=== PATIENT | female | born 1935 | race Caucasian/White ===

== ENCOUNTER 2017-06-29 10:23 | Inpatient (IN) | payer MEDICARE, BC ==
[2017-06-29] MEDS ORDERED: Furosemide 20 MG Tab PO PRN (13:50)
[2017-06-29] MEDS ORDERED: rOPINIRole 0.5 MG Tab PO PRN (13:50)
[2017-06-29] MEDS: ceFAZolin 2 GM in Premix Bag 1 BAG IV SCH ×2 (14:02→21:37)
[2017-06-29] MEDS: traMADol 50 MG Tab PO SCH ×2 (14:49→20:00)
[2017-06-29] MEDS: Acetaminophen 500 MG Tab PO SCH ×2 (14:50→21:36)
[2017-06-29] MEDS: Nystatin Susp 100,000 Unit/ML 5 ML UD Cup PO SCH ×3 (14:50→21:37)
[2017-06-29] MEDS: Calcium Carbonate/Vitamin D3 1250 MG-200 Unit Tab PO SCH (17:20)
--- NOTE | 2017-06-29 17:27 | PCM.HP ---
H&P History of Present Illness - General Date of Service: 06/29/17 Admit Problem/Dx: Admission Diagnosis/Problem Admission Diagnosis/Problem Prosthetic joint infection Source of Information: Patient, Old Records History Limitations: Reports: No Limitations - History of Present Illness Initial Comments - Free Text/Narative: This is an 82-year-old female patient is transferred from [place] after she had an infected contusion of the left lateral knee I an d. She is here for IV antibiotics. 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 She states this summer in April she started to have a wound in the started draining. She did see Dr. Sebastian and then in the middle April had it opened up. She is seen infectious disease they treated it. Then it came back recently and she had an open up by Dr. Sebastian last . She is here for IV antibiotics as stated before. She denies fevers, chills, knee pain. She states it did not get inside the joint. - Related Data Allergies/Adverse Reactions: Allergies Allergy/AdvReac Type Severity Reaction Status Date / Time morphine Allergy Nausea and Verified 06/29/17 13:20 Vomiting Home Medications: Home Meds Acetaminophen [Tylenol Extra Strength] 1,000 mg PO Q8H 06/29/17 [History] Aspirin [Halfprin] 81 mg PO DAILY 06/29/17 [History] Calcium Carbonate [Tums] 500 mg PO QID PRN 06/29/17 [History] Calcium Carbonate/Vitamin D3 [Calcium 500-Vit D3 200 Caplet] 1 tab PO BIDMEALS 06/29/17 [History] Cholecalciferol (Vitamin D3) [Vitamin D3] 1,000 units PO DAILY 06/29/17 [History ] Furosemide 20 mg PO DAILY PRN 06/29/17 [History] Iron,Carbonyl/Ascorbic Acid [Vitron-C Tablet] 1 each PO DAILY 06/29/17 [History] Levothyroxine 125 mcg PO DAILY 06/29/17 [History] Metoprolol Tartrate [Lopressor] 50 mg PO BID 06/29/17 [History] Nystatin [Mycostatin] 500,000 unit PO QID 06/29/17 [History] Omeprazole 20 mg PO DAILY 06/29/17 [History] Polyethylene Glycol 3350 [MiraLAX] 17 gm PO DAILY 06/29/17 [History] Rifampin 600 mg PO DAILY 06/29/17 [History] Sennosides/Docusate Sodium [Senna-S] 1 tab PO BID 06/29/17 [History] amLODIPine [Norvasc] 5 mg PO DAILY 06/29/17 [History] oxyCODONE 5 mg PO Q4H PRN 06/29/17 [History] rOPINIRole [Requip] 0.25 mg PO DAILY PRN 06/29/17 [History] rOPINIRole [Requip] 0.5 mg PO BEDTIME 06/29/17 [History] traMADol [Ultram] 50 mg PO Q6H 06/29/17 [History] Past Medical History HEENT History: Reports: Cataract Respiratory History: Reports: Pneumonia, Recurrent Gastrointestinal History: Reports: GERD [employer]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 (See Below) Other OB/BYN History: D and C x2 Musculoskeletal History: Reports: Osteoporosis Neurological History: Reports: None Psychiatric History: Reports: Anxiety Endocrine/Metabolic History: Reports: Hypothyroidism, Osteoporosis Oncologic (Cancer) History: Reports: Breast - Infectious Disease History Infectious Disease History: Reports: Chicken Pox, Measles, Mumps - Past Surgical History HEENT Surgical History: Reports: Oral Surgery GI Surgical History: Reports: Appendectomy, Cholecystectomy Musculoskeletal Surgical History: Reports: Arthroscopic Knee, Arthroscopic Procedure, Knee Replacement Oncologic Surgical History: Reports: Biopsy of Breast, Mastectomy Social & Family History - Family History Family Medical History: Noncontributory - Tobacco Use Smoking Status *Q: Never Smoker Second Hand Smoke Exposure: No - Caffeine Use Caffeine Use: Reports: Coffee - Recreational Drug Use Recreational Drug Use: No H&P Review of Systems - Review of Systems: Review Of Systems: See Below General: Reports: No Symptoms HEENT: Reports: No Symptoms Pulmonary: Reports: No Symptoms Cardiovascular: Reports: No Symptoms Gastrointestinal: Reports: No Symptoms Genitourinary: Reports: No Symptoms Musculoskeletal: Reports: No Symptoms Skin: Reports: Other (See history of present illness) Psychiatric: Reports: No Symptoms Neurological: Reports: No Symptoms Hematologic/Lymphatic: Reports: No Symptoms Immunologic: Reports: No Symptoms Exam - Exam Exam: See Below - Vital Signs Vital Signs: Last Vital Signs Temp 98.5 F 06/29/17 12:23 Pulse 69 06/29/17 12:23 Resp 20 06/29/17 12:23 BP 155/79 H 06/29/17 12:23 Pulse Ox 96 06/29/17 12:23 Weight: 230 lb - Exam General: Alert, Oriented, Cooperative HEENT: PERRLA, Hearing Intact, Mucosa Moist & [place], Posterior Pharynx Clear, TMs Clear Neck: Supple, Trachea Midline Lungs: Clear to Auscultation, Normal Respiratory Effort Cardiovascular: Regular Rate, Regular Rhythm, Normal S1, Normal S2. No: Systolic Murmur, Diastolic Murmur GI/Abdominal Exam: Normal Bowel Sounds, Soft, Non-Tender, No Distention Back Exam: Normal Inspection Extremities: No Pedal Edema Skin: Other (Incision left lateral knee with amber in place. No erythema or drainage.) Neurological: Normal Speech, Normal Tone Neuro Extensive - Mental Status: Alert, Oriented x3, Normal Mood/Affect, Normal Cognition, Memory Intact Neuro Extensive - Motor, Sensory, Reflexes: Normal Gait, Other (Walks with walker) Psychiatric: Alert, Normal Affect, Normal Mood *Q Meaningful Use (ADM) - VTE *Q VTE Criteria *Q: - Stroke *Q Stroke Criteria *Q: - AMI *Q AMI Criteria *Q: - Problem List (1) Infected prosthetic knee joint SNOMED Code(s): 241685881 ICD Code: T84.59XA - INFECT/INFLM REACTION DUE TO OTH INTERNAL JOINT PROSTH, INIT; Z96.659 - PRESENCE OF UNSPECIFIED ARTIFICIAL KNEE JOINT Status: Acute Current Visit: Yes Problem List Initiated/Reviewed/Updated: Yes Orders Last 24hrs: Active Orders 24 hr Category Date Time Status Patient Status [ADT] Routine ADT 06/29/17 12:15 Active Activity as Tolerated [RC] ,,,21 Care 06/29/17 14:04 Active OT Evaluation and Treatment [CONS] Routine Cons 06/29/17 14:03 Active PT Evaluation and Treatment [CONS] Routine Cons 06/29/17 14:03 Active Regular Diet [DIET] Diet 06/29/17 Dinner Active Acetaminophen [Tylenol Extra Strength] Med 06/29/17 14:00 Active 1,000 mg PO Q8H Aspirin [Halfprin] Med 06/30/17 09:00 Active 81 mg PO DAILY Calcium Carbonate [Tums] Med 06/29/17 13:50 Active 500 mg PO QID PRN Calcium Carbonate/Vitamin D3 [Calcium Carbonate/Vitamin Med 06/29/17 18:00 Active D 1250 MG-200 Unit] 1 tab PO BIDMEALS Cholecalciferol (Vitamin D3) [Vitamin D3] Med 06/30/17 09:00 Active 1,000 units PO DAILY Docusate Sodium/Sennosides [Senna Plus] Med 06/29/17 21:00 Active 1 tab PO BID Ferrous Sulfate Med 06/30/17 09:00 Active 325 mg PO DAILY Furosemide [Lasix] Med 06/29/17 13:50 Active 20 mg PO DAILY PRN Levothyroxine Med 06/30/17 06:00 Active 125 mcg PO 0600 Metoprolol Tartrate [Lopressor] Med 06/29/17 21:00 Active 50 mg PO BID Nystatin [Mycostatin] Med 06/29/17 14:30 Active 5 ml PO QID Pantoprazole [ProTONIX] Med 06/30/17 06:00 Active 40 mg PO 0600 Polyethylene Glycol 3350 [MiraLAX] Med 06/30/17 09:00 Active 17 gm PO DAILY Rifampin Med 06/30/17 09:00 Active 600 mg PO DAILY amLODIPine [Norvasc] Med 06/30/17 09:00 Active 5 mg PO DAILY ceFAZolin [Ancef] 2 gm Med 06/29/17 14:00 Active Premix Bag 1 bag IV Q8H oxyCODONE Med 06/29/17 13:50 Active 5 mg PO Q4H PRN rOPINIRole [Requip] Med 06/29/17 13:50 Active 0.25 mg PO DAILY PRN rOPINIRole [Requip] Med 06/29/17 21:00 Active 0.5 mg PO BEDTIME traMADol [Ultram] Med 06/29/17 14:00 Active 50 mg PO Q6H [place] Hose [Antiembolic Hose] [OM.PC] Routine Oth 06/29/17 14:05 Ordered Code Status [Resuscitation Status] Routine Resus Stat 06/29/17 13:59 Ordered Medication Orders Acetaminophen (Tylenol Extra Strength) 1,000 mg PO Q8H [facility] Last Admin: 06/29/17 14:50 Dose: 1,000 mg Amlodipine Besylate (Norvasc) 5 mg PO DAILY [facility] Aspirin (Halfprin) 81 mg PO DAILY [facility] Calcium Carbonate (Calcium Carbonate/Vitamin D 1250 Mg-200 Unit) 1 tab PO BIDMEALS [facility] Last Admin: 06/29/17 17:20 Dose: 1 tab Calcium Carbonate/Glycine (Tums) 500 mg PO QID PRN PRN Reason: Indigestion Cholecalciferol (Vitamin D3) 1,000 units PO DAILY [facility] Ferrous Sulfate (Ferrous Sulfate) 325 mg PO DAILY [facility] Furosemide (Lasix) 20 mg PO DAILY PRN PRN Reason: SWELLING Cefazolin Sodium/Dextrose 2 gm (/ Premix) 50 mls @ 100 mls/hr IV Q8H [facility] Stop: 08/04/17 22:01 Last Admin: 06/29/17 14:02 Dose: 100 mls/hr Levothyroxine Sodium (Levothyroxine) 125 mcg PO 0600 [facility] Metoprolol Tartrate (Lopressor) 50 mg PO BID [facility] Nystatin (Mycostatin) 5 ml PO QID [facility] Last Admin: 06/29/17 17:20 Dose: 5 ml Admin: 06/29/17 14:50 Dose: 5 ml Oxycodone HCl (Oxycodone) 5 mg PO Q4H PRN PRN Reason: MODERATE/SEVERE PAIN Pantoprazole Sodium (Protonix) 40 mg PO 0600 [facility] Polyethylene Glycol (Miralax) 17 gm PO DAILY [facility] Rifampin (Rifampin) 600 mg PO DAILY [facility] Ropinirole HCl (Requip) 0.25 mg PO DAILY PRN PRN Reason: RESTLESS LEGS Ropinirole HCl (Requip) 0.5 mg PO BEDTIME [facility] Senna/Docusate Sodium (Senna Plus) 1 tab PO BID [facility] Tramadol HCl (Ultram) 50 mg PO Q6H [facility] Last Admin: 06/29/17 14:49 Dose: 50 mg Assessment/Plan Comment:: 1. Admit to swing bed 2. Regular diet. 3. Review PTE prophylaxis 4. Continue orders from [facility]. Rifampin and Ancef. She's here for IV antibiotics.
[2017-06-29] MEDS: rOPINIRole 0.5 MG Tab PO SCH (21:36)
[2017-06-29] MEDS: Metoprolol Tartrate 50 MG Tab PO SCH (21:37)
[2017-06-30] MEDS: Pantoprazole 40 MG Tab.CR PO SCH (07:35)
[2017-06-30] MEDS: ceFAZolin 2 GM in Premix Bag 1 BAG IV SCH ×3 (07:35→21:46)
[2017-06-30] MEDS: Acetaminophen 500 MG Tab PO SCH ×3 (07:35→21:46)
[2017-06-30] MEDS: Levothyroxine 125 MCG Tab PO SCH (07:36)
[2017-06-30] MEDS: Sodium Chloride 0.9% 250 ML IV SCH (07:37)
[2017-06-30] MEDS: traMADol 50 MG Tab PO SCH ×2 (07:40→08:08)
[2017-06-30] MEDS: Sodium Chloride 0.9% 10 ML Syringe FLUSH PRN ×5 (07:40→21:47)
[2017-06-30] MEDS: Calcium Carbonate/Vitamin D3 1250 MG-200 Unit Tab PO SCH ×2 (08:07→17:26)
[2017-06-30] MEDS: Aspirin 81 MG Tab.EC PO SCH (08:08)
[2017-06-30] MEDS: Metoprolol Tartrate 50 MG Tab PO SCH ×2 (08:08→21:45)
[2017-06-30] MEDS: Polyethylene Glycol 3350 Powder 17 GM Packet PO SCH (08:10)
[2017-06-30] MEDS: amLODIPine 5 MG Tab PO SCH (08:10)
[2017-06-30] MEDS: Nystatin Susp 100,000 Unit/ML 5 ML UD Cup PO SCH ×4 (08:10→21:44)
[2017-06-30] MEDS: Cholecalciferol (Vitamin D3) 1,000 Unit Tab PO SCH (08:10)
[2017-06-30] MEDS: Rifampin 300 MG Cap PO SCH (08:10)
[2017-06-30] MEDS: Ferrous Sulfate 325 MG Tab PO SCH (08:30)
[2017-06-30] MEDS: oxyCODONE 5 MG Tab PO PRN (10:55)
[2017-06-30] MEDS: Enoxaparin 30 MG/0.3 ML Syringe SUBCUT SCH (11:41)
[2017-06-30] MEDS: rOPINIRole 0.5 MG Tab PO SCH (21:45)
[2017-07-01] MEDS: Sodium Chloride 0.9% 10 ML Syringe FLUSH PRN ×3 (05:45→21:54)
[2017-07-01] MEDS: ceFAZolin 2 GM in Premix Bag 1 BAG IV SCH ×3 (05:45→21:54)
[2017-07-01] MEDS: Sodium Chloride 0.9% 250 ML IV SCH (05:45)
[2017-07-01] MEDS: Levothyroxine 125 MCG Tab PO SCH (05:47)
[2017-07-01] MEDS: Acetaminophen 500 MG Tab PO SCH ×3 (05:47→21:54)
[2017-07-01] MEDS: Pantoprazole 40 MG Tab.CR PO SCH (05:47)
[2017-07-01] MEDS: Polyethylene Glycol 3350 Powder 17 GM Packet PO SCH (09:06)
[2017-07-01] MEDS: Aspirin 81 MG Tab.EC PO SCH (09:07)
[2017-07-01] MEDS: Calcium Carbonate/Vitamin D3 1250 MG-200 Unit Tab PO SCH ×2 (09:07→17:09)
[2017-07-01] MEDS: Ferrous Sulfate 325 MG Tab PO SCH (09:07)
[2017-07-01] MEDS: Metoprolol Tartrate 50 MG Tab PO SCH ×2 (09:07→21:53)
[2017-07-01] MEDS: Nystatin Susp 100,000 Unit/ML 5 ML UD Cup PO SCH ×4 (09:08→21:53)
[2017-07-01] MEDS: amLODIPine 5 MG Tab PO SCH (09:09)
[2017-07-01] MEDS: Rifampin 300 MG Cap PO SCH (09:09)
[2017-07-01] MEDS: Cholecalciferol (Vitamin D3) 1,000 Unit Tab PO SCH (09:09)
[2017-07-01] MEDS: traMADol 50 MG Tab PO PRN ×2 (09:19→20:09)
[2017-07-01] MEDS: Enoxaparin 30 MG/0.3 ML Syringe SUBCUT SCH (11:32)
[2017-07-01] MEDS: rOPINIRole 0.5 MG Tab PO SCH (21:54)
[2017-07-02] MEDS: oxyCODONE 5 MG Tab PO PRN (03:27)
[2017-07-02] MEDS: Acetaminophen 500 MG Tab PO SCH ×3 (06:01→21:40)
[2017-07-02] MEDS: Pantoprazole 40 MG Tab.CR PO SCH (06:01)
[2017-07-02] MEDS: Levothyroxine 125 MCG Tab PO SCH (06:01)
[2017-07-02] MEDS: ceFAZolin 2 GM in Premix Bag 1 BAG IV SCH ×3 (06:03→21:36)
[2017-07-02] MEDS: Sodium Chloride 0.9% 10 ML Syringe FLUSH PRN ×2 (06:47→21:37)
[2017-07-02] MEDS: traMADol 50 MG Tab PO PRN (08:02)
[2017-07-02] MEDS: Ferrous Sulfate 325 MG Tab PO SCH (08:06)
[2017-07-02] MEDS: Metoprolol Tartrate 50 MG Tab PO SCH ×2 (08:06→20:24)
[2017-07-02] MEDS: Aspirin 81 MG Tab.EC PO SCH (08:06)
[2017-07-02] MEDS: Calcium Carbonate/Vitamin D3 1250 MG-200 Unit Tab PO SCH ×2 (08:06→17:38)
[2017-07-02] MEDS: Polyethylene Glycol 3350 Powder 17 GM Packet PO SCH (08:07)
[2017-07-02] MEDS: amLODIPine 5 MG Tab PO SCH (08:07)
[2017-07-02] MEDS: Rifampin 300 MG Cap PO SCH (08:07)
[2017-07-02] MEDS: Nystatin Susp 100,000 Unit/ML 5 ML UD Cup PO SCH ×4 (08:07→20:29)
[2017-07-02] MEDS: Cholecalciferol (Vitamin D3) 1,000 Unit Tab PO SCH (08:08)
[2017-07-02] MEDS: Enoxaparin 30 MG/0.3 ML Syringe SUBCUT SCH (09:55)
[2017-07-02] MEDS: rOPINIRole 0.5 MG Tab PO SCH (20:30)
[2017-07-02] MEDS: Sodium Chloride 0.9% 250 ML IV SCH (21:38)
[2017-07-03] MEDS: Pantoprazole 40 MG Tab.CR PO SCH (05:54)
[2017-07-03] MEDS: ceFAZolin 2 GM in Premix Bag 1 BAG IV SCH ×3 (05:54→22:08)
[2017-07-03] MEDS: Levothyroxine 125 MCG Tab PO SCH (05:54)
[2017-07-03] MEDS: Sodium Chloride 0.9% 10 ML Syringe FLUSH PRN ×2 (06:00→14:42)
[2017-07-03] MEDS: Acetaminophen 500 MG Tab PO SCH ×3 (07:48→22:08)
[2017-07-03] MEDS: Polyethylene Glycol 3350 Powder 17 GM Packet PO SCH (08:28)
[2017-07-03] MEDS: Calcium Carbonate/Vitamin D3 1250 MG-200 Unit Tab PO SCH ×2 (08:28→17:45)
[2017-07-03] MEDS: Ferrous Sulfate 325 MG Tab PO SCH (08:28)
[2017-07-03] MEDS: Aspirin 81 MG Tab.EC PO SCH (08:28)
[2017-07-03] MEDS: Metoprolol Tartrate 50 MG Tab PO SCH ×2 (08:28→20:51)
[2017-07-03] MEDS: Rifampin 300 MG Cap PO SCH (08:29)
[2017-07-03] MEDS: amLODIPine 5 MG Tab PO SCH (08:29)
[2017-07-03] MEDS: Cholecalciferol (Vitamin D3) 1,000 Unit Tab PO SCH (08:29)
[2017-07-03] MEDS: Nystatin Susp 100,000 Unit/ML 5 ML UD Cup PO SCH ×4 (08:29→20:51)
[2017-07-03] MEDS: Enoxaparin 30 MG/0.3 ML Syringe SUBCUT SCH (12:15)
[2017-07-03] MEDS: rOPINIRole 0.5 MG Tab PO SCH (20:51)
[2017-07-04] MEDS: ceFAZolin 2 GM in Premix Bag 1 BAG IV SCH ×3 (05:54→21:57)
[2017-07-04] MEDS: Acetaminophen 500 MG Tab PO SCH ×3 (06:00→22:09)
[2017-07-04] MEDS: Pantoprazole 40 MG Tab.CR PO SCH (06:00)
[2017-07-04] MEDS: Levothyroxine 125 MCG Tab PO SCH (06:00)
[2017-07-04] MEDS: Calcium Carbonate/Vitamin D3 1250 MG-200 Unit Tab PO SCH ×2 (07:59→16:59)
[2017-07-04] MEDS: Ferrous Sulfate 325 MG Tab PO SCH (09:08)
[2017-07-04] MEDS: Aspirin 81 MG Tab.EC PO SCH (09:08)
[2017-07-04] MEDS: Metoprolol Tartrate 50 MG Tab PO SCH ×2 (09:09→20:05)
[2017-07-04] MEDS: amLODIPine 5 MG Tab PO SCH (09:12)
[2017-07-04] MEDS: Polyethylene Glycol 3350 Powder 17 GM Packet PO SCH (09:12)
[2017-07-04] MEDS: Nystatin Susp 100,000 Unit/ML 5 ML UD Cup PO SCH ×4 (09:12→20:05)
[2017-07-04] MEDS: Rifampin 300 MG Cap PO SCH (09:14)
[2017-07-04] MEDS: Cholecalciferol (Vitamin D3) 1,000 Unit Tab PO SCH (09:14)
[2017-07-04] MEDS: Enoxaparin 30 MG/0.3 ML Syringe SUBCUT SCH (11:30)
[2017-07-04] MEDS: Sodium Chloride 0.9% 10 ML Syringe FLUSH PRN ×2 (15:50→22:45)
[2017-07-04] MEDS: rOPINIRole 0.5 MG Tab PO SCH (20:05)
[2017-07-04] MEDS: Sodium Chloride 0.9% 250 ML IV SCH (21:57)
[2017-07-05] MEDS: ceFAZolin 2 GM in Premix Bag 1 BAG IV SCH ×3 (06:11→22:20)
[2017-07-05] MEDS: Sodium Chloride 0.9% 10 ML Syringe FLUSH PRN ×2 (06:17→13:31)
[2017-07-05] MEDS: Acetaminophen 500 MG Tab PO SCH ×3 (06:17→22:25)
[2017-07-05] MEDS: Levothyroxine 125 MCG Tab PO SCH (06:17)
[2017-07-05] MEDS: Pantoprazole 40 MG Tab.CR PO SCH (06:17)
[2017-07-05] MEDS: Ferrous Sulfate 325 MG Tab PO SCH (08:32)
[2017-07-05] MEDS: Calcium Carbonate/Vitamin D3 1250 MG-200 Unit Tab PO SCH ×2 (08:32→17:12)
[2017-07-05] MEDS: Aspirin 81 MG Tab.EC PO SCH (08:33)
[2017-07-05] MEDS: Metoprolol Tartrate 50 MG Tab PO SCH ×2 (08:33→20:46)
[2017-07-05] MEDS: amLODIPine 5 MG Tab PO SCH (08:34)
[2017-07-05] MEDS: Nystatin Susp 100,000 Unit/ML 5 ML UD Cup PO SCH ×4 (08:34→20:47)
[2017-07-05] MEDS: Polyethylene Glycol 3350 Powder 17 GM Packet PO SCH (08:34)
[2017-07-05] MEDS: Rifampin 300 MG Cap PO SCH (08:35)
[2017-07-05] MEDS: Cholecalciferol (Vitamin D3) 1,000 Unit Tab PO SCH (08:36)
[2017-07-05] MEDS: Enoxaparin 30 MG/0.3 ML Syringe SUBCUT SCH (11:14)
[2017-07-05] MEDS: rOPINIRole 0.5 MG Tab PO SCH (20:46)
[2017-07-06] MEDS: Pantoprazole 40 MG Tab.CR PO SCH (06:16)
[2017-07-06] MEDS: ceFAZolin 2 GM in Premix Bag 1 BAG IV SCH ×3 (06:16→21:38)
[2017-07-06] MEDS: Levothyroxine 125 MCG Tab PO SCH (06:16)
[2017-07-06] MEDS: Acetaminophen 500 MG Tab PO SCH ×3 (06:16→22:26)
[2017-07-06] MEDS: Ferrous Sulfate 325 MG Tab PO SCH (08:49)
[2017-07-06] MEDS: Calcium Carbonate/Vitamin D3 1250 MG-200 Unit Tab PO SCH ×2 (08:49→18:16)
[2017-07-06] MEDS: Aspirin 81 MG Tab.EC PO SCH (08:50)
[2017-07-06] MEDS: Metoprolol Tartrate 50 MG Tab PO SCH ×2 (08:50→20:09)
[2017-07-06] MEDS: Polyethylene Glycol 3350 Powder 17 GM Packet PO SCH (08:51)
[2017-07-06] MEDS: Nystatin Susp 100,000 Unit/ML 5 ML UD Cup PO SCH ×4 (08:51→20:10)
[2017-07-06] MEDS: amLODIPine 5 MG Tab PO SCH (08:52)
[2017-07-06] MEDS: Rifampin 300 MG Cap PO SCH (08:52)
[2017-07-06] MEDS: Cholecalciferol (Vitamin D3) 1,000 Unit Tab PO SCH (08:53)
[2017-07-06] MEDS: Enoxaparin 30 MG/0.3 ML Syringe SUBCUT SCH (11:27)
[2017-07-06] MEDS: Sodium Chloride 0.9% 250 ML IV SCH (14:23)
[2017-07-06] MEDS: Sodium Chloride 0.9% 10 ML Syringe FLUSH PRN ×2 (15:28→22:26)
[2017-07-06] MEDS: rOPINIRole 0.5 MG Tab PO SCH (20:09)
[2017-07-07] MEDS: ceFAZolin 2 GM in Premix Bag 1 BAG IV SCH ×3 (06:31→22:08)
[2017-07-07] MEDS: Levothyroxine 125 MCG Tab PO SCH (06:33)
[2017-07-07] MEDS: Pantoprazole 40 MG Tab.CR PO SCH (06:33)
[2017-07-07] MEDS: Acetaminophen 500 MG Tab PO SCH ×3 (06:34→22:11)
[2017-07-07] MEDS: Sodium Chloride 0.9% 10 ML Syringe FLUSH PRN ×4 (06:35→22:44)
[2017-07-07] MEDS: Ferrous Sulfate 325 MG Tab PO SCH (08:45)
[2017-07-07] MEDS: Aspirin 81 MG Tab.EC PO SCH (08:45)
[2017-07-07] MEDS: Metoprolol Tartrate 50 MG Tab PO SCH ×2 (08:45→20:36)
[2017-07-07] MEDS: Calcium Carbonate/Vitamin D3 1250 MG-200 Unit Tab PO SCH ×2 (08:45→17:27)
[2017-07-07] MEDS: Polyethylene Glycol 3350 Powder 17 GM Packet PO SCH (08:46)
[2017-07-07] MEDS: Nystatin Susp 100,000 Unit/ML 5 ML UD Cup PO SCH ×4 (08:46→20:36)
[2017-07-07] MEDS: amLODIPine 5 MG Tab PO SCH (08:47)
[2017-07-07] MEDS: Rifampin 300 MG Cap PO SCH (08:47)
[2017-07-07] MEDS: Cholecalciferol (Vitamin D3) 1,000 Unit Tab PO SCH (08:48)
[2017-07-07] MEDS: Enoxaparin 30 MG/0.3 ML Syringe SUBCUT SCH (11:05)
[2017-07-07] MEDS: rOPINIRole 0.5 MG Tab PO SCH (20:36)
[2017-07-08] MEDS: ceFAZolin 2 GM in Premix Bag 1 BAG IV SCH ×3 (05:54→21:47)
[2017-07-08] MEDS: Pantoprazole 40 MG Tab.CR PO SCH (06:23)
[2017-07-08] MEDS: Levothyroxine 125 MCG Tab PO SCH (06:23)
[2017-07-08] MEDS: Acetaminophen 500 MG Tab PO SCH ×3 (06:23→21:47)
[2017-07-08] MEDS: Sodium Chloride 0.9% 10 ML Syringe FLUSH PRN ×3 (06:37→22:37)
[2017-07-08] MEDS: Metoprolol Tartrate 50 MG Tab PO SCH ×2 (09:08→20:13)
[2017-07-08] MEDS: Polyethylene Glycol 3350 Powder 17 GM Packet PO SCH (09:08)
[2017-07-08] MEDS: Ferrous Sulfate 325 MG Tab PO SCH (09:08)
[2017-07-08] MEDS: Calcium Carbonate/Vitamin D3 1250 MG-200 Unit Tab PO SCH ×2 (09:08→17:38)
[2017-07-08] MEDS: Aspirin 81 MG Tab.EC PO SCH (09:08)
[2017-07-08] MEDS: amLODIPine 5 MG Tab PO SCH (09:09)
[2017-07-08] MEDS: Nystatin Susp 100,000 Unit/ML 5 ML UD Cup PO SCH ×4 (09:09→20:13)
[2017-07-08] MEDS: Cholecalciferol (Vitamin D3) 1,000 Unit Tab PO SCH (09:10)
[2017-07-08] MEDS: Rifampin 300 MG Cap PO SCH (09:14)
[2017-07-08] MEDS: Enoxaparin 30 MG/0.3 ML Syringe SUBCUT SCH (11:38)
[2017-07-08] MEDS: Sodium Chloride 0.9% 250 ML IV SCH (14:06)
[2017-07-08] MEDS: rOPINIRole 0.5 MG Tab PO SCH (20:13)
[2017-07-09] MEDS: ceFAZolin 2 GM in Premix Bag 1 BAG IV SCH ×3 (05:50→22:37)
[2017-07-09] MEDS: Levothyroxine 125 MCG Tab PO SCH (05:51)
[2017-07-09] MEDS: Pantoprazole 40 MG Tab.CR PO SCH (05:52)
[2017-07-09] MEDS: Acetaminophen 500 MG Tab PO SCH ×4 (05:52→22:38)
[2017-07-09] MEDS: Sodium Chloride 0.9% 10 ML Syringe FLUSH PRN ×3 (06:37→22:45)
[2017-07-09] MEDS: Aspirin 81 MG Tab.EC PO SCH (08:01)
[2017-07-09] MEDS: Ferrous Sulfate 325 MG Tab PO SCH (08:01)
[2017-07-09] MEDS: Calcium Carbonate/Vitamin D3 1250 MG-200 Unit Tab PO SCH ×2 (08:01→18:51)
[2017-07-09] MEDS: Polyethylene Glycol 3350 Powder 17 GM Packet PO SCH (08:02)
[2017-07-09] MEDS: Metoprolol Tartrate 50 MG Tab PO SCH ×2 (08:02→20:15)
[2017-07-09] MEDS: Rifampin 300 MG Cap PO SCH (08:03)
[2017-07-09] MEDS: Nystatin Susp 100,000 Unit/ML 5 ML UD Cup PO SCH ×4 (08:03→20:16)
[2017-07-09] MEDS: amLODIPine 5 MG Tab PO SCH (08:03)
[2017-07-09] MEDS: Cholecalciferol (Vitamin D3) 1,000 Unit Tab PO SCH (08:04)
[2017-07-09] MEDS: Enoxaparin 30 MG/0.3 ML Syringe SUBCUT SCH (10:21)
[2017-07-09] MEDS: rOPINIRole 0.5 MG Tab PO SCH (20:16)
[2017-07-09] MEDS: Sodium Chloride 0.9% 250 ML IV SCH (22:37)
[2017-07-09] MEDS: Calcium Carbonate 500 MG Tab.Chew PO PRN (22:49)
[2017-07-10] MEDS: ceFAZolin 2 GM in Premix Bag 1 BAG IV SCH ×3 (05:39→21:25)
[2017-07-10] MEDS: Pantoprazole 40 MG Tab.CR PO SCH (05:40)
[2017-07-10] MEDS: Acetaminophen 500 MG Tab PO SCH ×3 (05:41→21:25)
[2017-07-10] MEDS: Levothyroxine 125 MCG Tab PO SCH (05:41)
[2017-07-10] MEDS: Sodium Chloride 0.9% 250 ML IV SCH (05:43)
[2017-07-10] MEDS: Sodium Chloride 0.9% 10 ML Syringe FLUSH PRN ×3 (06:24→14:48)
[2017-07-10] MEDS: Calcium Carbonate/Vitamin D3 1250 MG-200 Unit Tab PO SCH ×2 (08:09→17:22)
[2017-07-10] MEDS: Aspirin 81 MG Tab.EC PO SCH (08:10)
[2017-07-10] MEDS: Ferrous Sulfate 325 MG Tab PO SCH (08:10)
[2017-07-10] MEDS: Polyethylene Glycol 3350 Powder 17 GM Packet PO SCH (08:11)
[2017-07-10] MEDS: Metoprolol Tartrate 50 MG Tab PO SCH ×2 (08:11→21:25)
[2017-07-10] MEDS: Nystatin Susp 100,000 Unit/ML 5 ML UD Cup PO SCH ×4 (08:12→21:25)
[2017-07-10] MEDS: amLODIPine 5 MG Tab PO SCH (08:12)
[2017-07-10] MEDS: Rifampin 300 MG Cap PO SCH (08:13)
[2017-07-10] MEDS: Cholecalciferol (Vitamin D3) 1,000 Unit Tab PO SCH (08:14)
[2017-07-10] MEDS: Enoxaparin 30 MG/0.3 ML Syringe SUBCUT SCH (11:13)
[2017-07-10] MEDS: Calcium Carbonate 500 MG Tab.Chew PO PRN ×2 (16:35→21:35)
[2017-07-10] MEDS: rOPINIRole 0.5 MG Tab PO SCH (21:25)
[2017-07-11] MEDS: Pantoprazole 40 MG Tab.CR PO SCH (06:02)
[2017-07-11] MEDS: Levothyroxine 125 MCG Tab PO SCH (06:02)
[2017-07-11] MEDS: Acetaminophen 500 MG Tab PO SCH ×3 (06:02→21:55)
[2017-07-11] MEDS: ceFAZolin 2 GM in Premix Bag 1 BAG IV SCH ×3 (06:02→21:55)
[2017-07-11] MEDS: Metoprolol Tartrate 50 MG Tab PO SCH ×2 (08:26→20:54)
[2017-07-11] MEDS: Calcium Carbonate/Vitamin D3 1250 MG-200 Unit Tab PO SCH ×2 (08:26→17:05)
[2017-07-11] MEDS: Ferrous Sulfate 325 MG Tab PO SCH (08:26)
[2017-07-11] MEDS: Aspirin 81 MG Tab.EC PO SCH (08:26)
[2017-07-11] MEDS: Cholecalciferol (Vitamin D3) 1,000 Unit Tab PO SCH (08:27)
[2017-07-11] MEDS: Rifampin 300 MG Cap PO SCH (08:27)
[2017-07-11] MEDS: amLODIPine 5 MG Tab PO SCH (08:27)
[2017-07-11] MEDS: Polyethylene Glycol 3350 Powder 17 GM Packet PO SCH (09:00)
[2017-07-11] MEDS: Nystatin Susp 100,000 Unit/ML 5 ML UD Cup PO SCH ×4 (09:00→20:57)
[2017-07-11] MEDS: Enoxaparin 30 MG/0.3 ML Syringe SUBCUT SCH (11:10)
[2017-07-11] MEDS: Sodium Chloride 0.9% 250 ML IV SCH (13:45)
[2017-07-11] MEDS: Calcium Carbonate 500 MG Tab.Chew PO PRN ×2 (16:45→21:02)
[2017-07-11] MEDS: rOPINIRole 0.5 MG Tab PO SCH (20:54)
[2017-07-11] MEDS: Sodium Chloride 0.9% 10 ML Syringe FLUSH PRN (22:35)
[2017-07-12] MEDS: ceFAZolin 2 GM in Premix Bag 1 BAG IV SCH ×3 (05:58→21:00)
[2017-07-12] MEDS: Levothyroxine 125 MCG Tab PO SCH (05:59)
[2017-07-12] MEDS: Pantoprazole 40 MG Tab.CR PO SCH (05:59)
[2017-07-12] MEDS: Acetaminophen 500 MG Tab PO SCH ×3 (06:04→21:00)
[2017-07-12] MEDS: Metoprolol Tartrate 50 MG Tab PO SCH ×2 (08:35→20:31)
[2017-07-12] MEDS: Aspirin 81 MG Tab.EC PO SCH (08:35)
[2017-07-12] MEDS: Calcium Carbonate/Vitamin D3 1250 MG-200 Unit Tab PO SCH ×2 (08:35→18:16)
[2017-07-12] MEDS: Ferrous Sulfate 325 MG Tab PO SCH (08:35)
[2017-07-12] MEDS: Polyethylene Glycol 3350 Powder 17 GM Packet PO SCH (08:36)
[2017-07-12] MEDS: Nystatin Susp 100,000 Unit/ML 5 ML UD Cup PO SCH (08:36)
[2017-07-12] MEDS: Rifampin 300 MG Cap PO SCH (08:37)
[2017-07-12] MEDS: amLODIPine 5 MG Tab PO SCH (08:37)
[2017-07-12] MEDS: Cholecalciferol (Vitamin D3) 1,000 Unit Tab PO SCH (08:38)
[2017-07-12] MEDS ORDERED: Polyethylene Glycol 3350 Powder 17 GM Packet PO PRN (08:51)
[2017-07-12] MEDS: Enoxaparin 30 MG/0.3 ML Syringe SUBCUT SCH (12:07)
[2017-07-12] MEDS: Sodium Chloride 0.9% 10 ML Syringe FLUSH PRN ×3 (14:55→21:00)
[2017-07-12] MEDS: Sodium Chloride 0.9% 250 ML IV SCH (14:55)
[2017-07-12] MEDS: rOPINIRole 0.5 MG Tab PO SCH (20:32)
[2017-07-12] MEDS: Calcium Carbonate 500 MG Tab.Chew PO PRN (20:56)
[2017-07-13] MEDS: ceFAZolin 2 GM in Premix Bag 1 BAG IV SCH ×3 (06:11→22:18)
[2017-07-13] MEDS: OMEPRAZOLE 20 MG PO SCH (06:14)
[2017-07-13] MEDS: Acetaminophen 500 MG Tab PO SCH ×3 (06:15→22:49)
[2017-07-13] MEDS: Levothyroxine 125 MCG Tab PO SCH (06:15)
[2017-07-13] MEDS: Sodium Chloride 0.9% 10 ML Syringe FLUSH PRN ×4 (06:52→22:52)
[2017-07-13] MEDS: Calcium Carbonate/Vitamin D3 1250 MG-200 Unit Tab PO SCH ×2 (08:33→17:37)
[2017-07-13] MEDS: Ferrous Sulfate 325 MG Tab PO SCH (08:33)
[2017-07-13] MEDS: Aspirin 81 MG Tab.EC PO SCH (08:34)
[2017-07-13] MEDS: Metoprolol Tartrate 50 MG Tab PO SCH ×2 (08:38→21:36)
[2017-07-13] MEDS: Rifampin 300 MG Cap PO SCH (08:39)
[2017-07-13] MEDS: amLODIPine 5 MG Tab PO SCH (08:39)
[2017-07-13] MEDS: Cholecalciferol (Vitamin D3) 1,000 Unit Tab PO SCH (08:41)
[2017-07-13] MEDS: Enoxaparin 30 MG/0.3 ML Syringe SUBCUT SCH (11:11)
[2017-07-13] MEDS: Sodium Chloride 0.9% 250 ML IV SCH (15:20)
[2017-07-13] MEDS: Saccharomyces Boulardii (Probiotic) 250 MG Cap PO SCH ×2 (17:39→22:15)
[2017-07-13] MEDS: rOPINIRole 0.5 MG Tab PO SCH (21:39)
[2017-07-14] MEDS: Levothyroxine 125 MCG Tab PO SCH (06:24)
[2017-07-14] MEDS: Acetaminophen 500 MG Tab PO SCH ×3 (06:25→21:30)
[2017-07-14] MEDS: OMEPRAZOLE 20 MG PO SCH (06:25)
[2017-07-14] MEDS: ceFAZolin 2 GM in Premix Bag 1 BAG IV SCH ×3 (06:26→21:30)
[2017-07-14] MEDS: Sodium Chloride 0.9% 10 ML Syringe FLUSH PRN ×3 (06:30→22:20)
--- NOTE | 2017-07-14 08:21 | PCM.PN ---
- General Info Date of Service: 07/14/17 Admission Dx/Problem (Free Text): Patient doing well. She saw the infectious disease doctor yesterday and [facility]. He put on probiotics and order some labs that we put into the orders yesterday. She states she still has amber in her left knee. There is no erythema, pain or drainage. She denies fevers or chills. - Patient Data Vitals - Most Recent: Last Vital Signs Temp 98 F 07/14/17 08:00 Pulse 98 07/14/17 08:00 Resp 18 07/14/17 08:00 BP 145/88 H 07/14/17 08:00 Pulse Ox 95 07/14/17 08:00 Weight - Most Recent: 226 lb I&O - Last 24 Hours: Intake & Output 07/13/17 07/14/17 07/14/17 22:59 06:59 14:59 Intake Total 130 85 Balance 130 85 Med Orders - Current: Current Medications Acetaminophen (Tylenol Extra Strength) 1,000 mg PO Q8H REPLACED BY [facility] Last Admin: 07/14/17 06:25 Dose: 1,000 mg Amlodipine Besylate (Norvasc) 5 mg PO DAILY REPLACED BY [facility] Last Admin: 07/13/17 08:39 Dose: 5 mg Aspirin (Halfprin) 81 mg PO DAILY REPLACED BY [facility] Last Admin: 07/13/17 08:34 Dose: 81 mg Calcium Carbonate (Calcium Carbonate/Vitamin D 1250 Mg-200 Unit) 1 tab PO BIDMEALS REPLACED BY [facility] Last Admin: 07/13/17 17:37 Dose: 1 tab Calcium Carbonate/Glycine (Tums) 500 mg PO QID PRN PRN Reason: Indigestion Last Admin: 07/12/17 20:56 Dose: 500 mg Cholecalciferol (Vitamin D3) 1,000 units PO DAILY REPLACED BY [facility] Last Admin: 07/13/17 08:41 Dose: 1,000 units Enoxaparin Sodium (Lovenox) 30 mg SUBCUT Q24H REPLACED BY [facility] Last Admin: 07/13/17 11:11 Dose: 30 mg Ferrous Sulfate (Ferrous Sulfate) 325 mg PO DAILY REPLACED BY [facility] Last Admin: 07/13/17 08:33 Dose: 325 mg Furosemide (Lasix) 20 mg PO DAILY PRN PRN Reason: SWELLING Cefazolin Sodium/Dextrose 2 gm (/ Premix) 50 mls @ 100 mls/hr IV Q8H REPLACED BY [facility] Stop: 08/04/17 22:01 Last Admin: 07/14/17 06:26 Dose: 100 mls/hr Sodium Chloride (Normal Saline) 250 mls @ 125 mls/hr IV ASDIRECTED REPLACED BY [facility] Last Admin: 07/13/17 15:20 Dose: 125 mls/hr Levothyroxine Sodium (Levothyroxine) 125 mcg PO 0600 REPLACED BY [facility] Last Admin: 07/14/17 06:24 Dose: 125 mcg Metoprolol Tartrate (Lopressor) 50 mg PO BID REPLACED BY [facility] Last Admin: 07/13/17 21:36 Dose: 50 mg Non-Formulary Medication ( Omeprazole 20mg) * Ptom 1 each PO DAILY@0600 REPLACED BY [facility] Last Admin: 07/14/17 06:25 Dose: 1 each Oxycodone HCl (Oxycodone) 5 mg PO Q4H PRN PRN Reason: MODERATE/SEVERE PAIN Last Admin: 07/02/17 03:27 Dose: 5 mg Polyethylene Glycol (Miralax) 17 gm PO DAILY PRN PRN Reason: Constipation Rifampin (Rifampin) 600 mg PO DAILY REPLACED BY [facility] Stop: 08/09/17 12:00 Last Admin: 07/13/17 08:39 Dose: 600 mg Ropinirole HCl (Requip) 0.25 mg PO DAILY PRN PRN Reason: RESTLESS LEGS Ropinirole HCl (Requip) 0.5 mg PO BEDTIME REPLACED BY [facility] Last Admin: 07/13/17 21:39 Dose: 0.5 mg Saccharomyces Boulardii (Florastor) 250 mg PO TID REPLACED BY [facility] Last Admin: 07/13/17 22:15 Dose: 250 mg Senna/Docusate Sodium (Senna Plus) 1 tab PO DAILY PRN PRN Reason: Constipation Sodium Chloride (Saline Flush) 10 ml FLUSH ASDIRECTED PRN PRN Reason: IV Use Last Admin: 07/14/17 06:30 Dose: 10 ml Tramadol HCl (Ultram) 50 mg PO Q6H PRN PRN Reason: Pain Last Admin: 07/02/17 08:02 Dose: 50 mg Discontinued Medications Nystatin (Mycostatin) 5 ml PO QID REPLACED BY [facility] Last Admin: 07/12/17 08:36 Dose: Not Given Pantoprazole Sodium (Protonix) 40 mg PO 0600 REPLACED BY [facility] Last Admin: 07/12/17 05:59 Dose: 40 mg Polyethylene Glycol (Miralax) 17 gm PO DAILY REPLACED BY [facility] Last Admin: 07/12/17 08:36 Dose: Not Given Senna/Docusate Sodium (Senna Plus) 1 tab PO BID REPLACED BY [facility] Last Admin: 07/12/17 08:37 Dose: Not Given Tramadol HCl (Ultram) 50 mg PO Q6H REPLACED BY [facility] Last Admin: 06/30/17 08:08 Dose: Not Given - Exam General: Alert, Oriented, Cooperative Skin: Other (Left knee wound is healed nicely. Amber still in place. No erythema or drainage.) - Problem List & Annotations (1) Infected prosthetic knee joint SNOMED Code(s): 878858483 Code(s): T84.59XA - INFECT/INFLM REACTION DUE TO OTH INTERNAL JOINT PROSTH, INIT; Z96.659 - PRESENCE OF UNSPECIFIED ARTIFICIAL KNEE JOINT Status: Acute Current Visit: Yes - Problem List Review Problem List Initiated/Reviewed/Updated: Yes - Plan Plan:: 1. Continue current care 2. Continue antibiotics per infectious disease orders.
[2017-07-14] MEDS: Ferrous Sulfate 325 MG Tab PO SCH (08:52)
[2017-07-14] MEDS: Aspirin 81 MG Tab.EC PO SCH (08:55)
[2017-07-14] MEDS: Metoprolol Tartrate 50 MG Tab PO SCH ×2 (08:56→20:37)
[2017-07-14] MEDS: amLODIPine 5 MG Tab PO SCH (08:56)
[2017-07-14] MEDS: Rifampin 300 MG Cap PO SCH (08:58)
[2017-07-14] MEDS: Calcium Carbonate/Vitamin D3 1250 MG-200 Unit Tab PO SCH ×2 (08:59→17:15)
[2017-07-14] MEDS: Cholecalciferol (Vitamin D3) 1,000 Unit Tab PO SCH (08:59)
[2017-07-14] MEDS: Saccharomyces Boulardii (Probiotic) 250 MG Cap PO SCH ×3 (10:20→20:36)
[2017-07-14] MEDS: Enoxaparin 30 MG/0.3 ML Syringe SUBCUT SCH (11:05)
[2017-07-14] MEDS: rOPINIRole 0.5 MG Tab PO SCH (20:37)
[2017-07-14] MEDS: Sodium Chloride 0.9% 250 ML IV SCH (21:30)
[2017-07-15] MEDS: Levothyroxine 125 MCG Tab PO SCH (05:58)
[2017-07-15] MEDS: Acetaminophen 500 MG Tab PO SCH ×3 (05:58→21:53)
[2017-07-15] MEDS: ceFAZolin 2 GM in Premix Bag 1 BAG IV SCH ×3 (05:58→21:52)
[2017-07-15] MEDS: OMEPRAZOLE 20 MG PO SCH (05:58)
[2017-07-15] MEDS: Sodium Chloride 0.9% 10 ML Syringe FLUSH PRN ×2 (06:45→22:41)
[2017-07-15] MEDS: Ferrous Sulfate 325 MG Tab PO SCH (08:48)
[2017-07-15] MEDS: Calcium Carbonate/Vitamin D3 1250 MG-200 Unit Tab PO SCH ×2 (08:48→18:38)
[2017-07-15] MEDS: Saccharomyces Boulardii (Probiotic) 250 MG Cap PO SCH ×3 (08:48→20:42)
[2017-07-15] MEDS: Aspirin 81 MG Tab.EC PO SCH (08:48)
[2017-07-15] MEDS: Metoprolol Tartrate 50 MG Tab PO SCH ×2 (08:49→20:42)
[2017-07-15] MEDS: amLODIPine 5 MG Tab PO SCH (08:49)
[2017-07-15] MEDS: Rifampin 300 MG Cap PO SCH (08:50)
[2017-07-15] MEDS: Cholecalciferol (Vitamin D3) 1,000 Unit Tab PO SCH (08:50)
[2017-07-15] MEDS: Enoxaparin 30 MG/0.3 ML Syringe SUBCUT SCH (11:13)
[2017-07-15] MEDS: rOPINIRole 0.5 MG Tab PO SCH (20:42)
[2017-07-15] MEDS: Sodium Chloride 0.9% 250 ML IV SCH (21:51)
[2017-07-15] MEDS: Calcium Carbonate 500 MG Tab.Chew PO PRN (22:14)
[2017-07-16] MEDS: OMEPRAZOLE 20 MG PO SCH (05:47)
[2017-07-16] MEDS: Levothyroxine 125 MCG Tab PO SCH (05:48)
[2017-07-16] MEDS: ceFAZolin 2 GM in Premix Bag 1 BAG IV SCH ×3 (05:48→21:53)
[2017-07-16] MEDS: Acetaminophen 500 MG Tab PO SCH ×3 (06:42→21:53)
[2017-07-16] MEDS: Sodium Chloride 0.9% 10 ML Syringe FLUSH PRN (06:43)
[2017-07-16] MEDS: amLODIPine 5 MG Tab PO SCH (08:57)
[2017-07-16] MEDS: Metoprolol Tartrate 50 MG Tab PO SCH ×2 (08:58→21:52)
[2017-07-16] MEDS: Calcium Carbonate/Vitamin D3 1250 MG-200 Unit Tab PO SCH ×2 (08:58→19:11)
[2017-07-16] MEDS: Saccharomyces Boulardii (Probiotic) 250 MG Cap PO SCH ×3 (08:58→21:52)
[2017-07-16] MEDS: Cholecalciferol (Vitamin D3) 1,000 Unit Tab PO SCH (08:58)
[2017-07-16] MEDS: Ferrous Sulfate 325 MG Tab PO SCH (08:58)
[2017-07-16] MEDS: Aspirin 81 MG Tab.EC PO SCH (08:59)
[2017-07-16] MEDS: Rifampin 300 MG Cap PO SCH (08:59)
[2017-07-16] MEDS: Enoxaparin 30 MG/0.3 ML Syringe SUBCUT SCH (11:41)
[2017-07-16] MEDS: Calcium Carbonate 500 MG Tab.Chew PO PRN ×2 (13:43→19:13)
[2017-07-16] MEDS ORDERED: Calcium Carbonate 500 MG Tab.Chew PO ONE (14:24)
[2017-07-16] MEDS: rOPINIRole 0.5 MG Tab PO SCH (21:53)
[2017-07-17] MEDS: ceFAZolin 2 GM in Premix Bag 1 BAG IV SCH ×3 (05:45→21:12)
[2017-07-17] MEDS: Levothyroxine 125 MCG Tab PO SCH (05:52)
[2017-07-17] MEDS: Acetaminophen 500 MG Tab PO SCH ×4 (05:53→21:10)
[2017-07-17] MEDS: OMEPRAZOLE 20 MG PO SCH ×2 (05:53→17:41)
[2017-07-17] MEDS: Rifampin 300 MG Cap PO SCH (09:23)
[2017-07-17] MEDS: amLODIPine 5 MG Tab PO SCH (09:23)
[2017-07-17] MEDS: Calcium Carbonate/Vitamin D3 1250 MG-200 Unit Tab PO SCH ×2 (09:24→17:37)
[2017-07-17] MEDS: Cholecalciferol (Vitamin D3) 1,000 Unit Tab PO SCH (09:24)
[2017-07-17] MEDS: Metoprolol Tartrate 50 MG Tab PO SCH ×2 (09:24→21:14)
[2017-07-17] MEDS: Saccharomyces Boulardii (Probiotic) 250 MG Cap PO SCH ×3 (09:24→21:07)
[2017-07-17] MEDS: Ferrous Sulfate 325 MG Tab PO SCH (09:24)
[2017-07-17] MEDS: Aspirin 81 MG Tab.EC PO SCH (09:24)
[2017-07-17] MEDS: Enoxaparin 30 MG/0.3 ML Syringe SUBCUT SCH (11:15)
[2017-07-17] MEDS: Sodium Chloride 0.9% 10 ML Syringe FLUSH PRN ×3 (14:02→21:15)
[2017-07-17] MEDS: Sodium Chloride 0.9% 250 ML IV SCH (14:05)
[2017-07-17] MEDS: Ondansetron 4 MG Tab.DIS PO PRN (14:58)
[2017-07-17] MEDS ORDERED: Non-Formulary Medication 1 Each PO SCH (17:00)
[2017-07-17] MEDS: Calcium Carbonate 500 MG Tab.Chew PO PRN (20:32)
[2017-07-17] MEDS: rOPINIRole 0.5 MG Tab PO SCH (21:08)
[2017-07-18] MEDS: ceFAZolin 2 GM in Premix Bag 1 BAG IV SCH ×3 (06:45→21:02)
[2017-07-18] MEDS: Sodium Chloride 0.9% 10 ML Syringe FLUSH PRN ×4 (06:47→20:29)
[2017-07-18] MEDS: Levothyroxine 125 MCG Tab PO SCH (06:48)
[2017-07-18] MEDS: Acetaminophen 500 MG Tab PO SCH (06:48)
[2017-07-18] MEDS: OMEPRAZOLE 20 MG PO SCH ×2 (06:50→17:13)
[2017-07-18] MEDS ORDERED: Acetaminophen 500 MG Tab PO PRN (08:00)
[2017-07-18] MEDS: Ferrous Sulfate 325 MG Tab PO SCH (08:22)
[2017-07-18] MEDS: Calcium Carbonate/Vitamin D3 1250 MG-200 Unit Tab PO SCH ×2 (08:22→17:12)
[2017-07-18] MEDS: Saccharomyces Boulardii (Probiotic) 250 MG Cap PO SCH ×3 (08:22→20:25)
[2017-07-18] MEDS: Aspirin 81 MG Tab.EC PO SCH (08:22)
[2017-07-18] MEDS: amLODIPine 5 MG Tab PO SCH (08:23)
[2017-07-18] MEDS: Cholecalciferol (Vitamin D3) 1,000 Unit Tab PO SCH (08:23)
[2017-07-18] MEDS: Rifampin 300 MG Cap PO SCH (08:23)
[2017-07-18] MEDS: Metoprolol Tartrate 50 MG Tab PO SCH ×2 (08:28→20:27)
[2017-07-18] MEDS: Calcium Carbonate 500 MG Tab.Chew PO PRN (11:04)
[2017-07-18] MEDS: Enoxaparin 30 MG/0.3 ML Syringe SUBCUT SCH (11:05)
[2017-07-18] MEDS: Sodium Chloride 0.9% 250 ML IV SCH (13:30)
[2017-07-18] MEDS: Ondansetron 4 MG Tab.DIS PO PRN ×2 (14:24→20:33)
[2017-07-18] MEDS: rOPINIRole 0.5 MG Tab PO SCH (20:26)
[2017-07-19] MEDS: ceFAZolin 2 GM in Premix Bag 1 BAG IV SCH ×3 (06:25→22:47)
[2017-07-19] MEDS: OMEPRAZOLE 20 MG PO SCH ×2 (06:27→17:46)
[2017-07-19] MEDS: Levothyroxine 125 MCG Tab PO SCH (06:28)
[2017-07-19] MEDS: Sodium Chloride 0.9% 10 ML Syringe FLUSH PRN ×2 (06:29→23:30)
[2017-07-19] MEDS: Ondansetron 4 MG Tab.DIS PO PRN (06:34)
--- NOTE | 2017-07-19 09:28 | PCM.PN ---
- General Info Date of Service: 07/19/17 Subjective Update: Patient complains of nausea, and at least one episode of emesis emesis. The symptoms have been going on for the last 3 weeks since admission. She's tried Tums, omeprazole and Zofran with no improvement. She has noted bright red blood in the vomitus in some occasions. She also suffers from dyspepsia and heartburn. She denies melena stools. This morning she complains of feeling somewhat dizzy at times. Functional Status: Reports: Pain Controlled, Tolerating Diet - Review of Systems General: Reports: No Symptoms HEENT: Reports: No Symptoms Pulmonary: Reports: No Symptoms Gastrointestinal: Reports: Decreased Appetite, Nausea, Vomiting. Denies: Melena Genitourinary: Reports: No Symptoms - Patient Data Vitals - Most Recent: Last Vital Signs Temp 98 F 07/19/17 02:21 Pulse 87 07/19/17 02:21 Resp 16 07/19/17 02:21 BP 131/70 07/19/17 02:21 Pulse Ox 95 07/19/17 02:21 Weight - Most Recent: 102.512 kg I&O - Last 24 Hours: Intake & Output 07/18/17 07/19/17 07/19/17 22:59 06:59 14:59 Intake Total 85 Balance 85 Lab Results Last 24 Hours: Laboratory Results - last 24 hr 07/19/17 07/19/17 Range/Units 05:50 05:50 WBC 3.9 L (4.5-12.0) X10-3/uL RBC 2.80 L (3.23-5.20) x10(6)uL Hgb 8.4 L (11.5-15.5) g/dL Hct 25.9 L (30.0-51.3) % MCV 92.4 (80-96) fL MCH 30.0 (27.7-33.6) pg MCHC 32.5 (32.2-35.4) g/dL RDW 14.2 (11.5-15.5) % Plt Count 232 (125-369) X10(3)uL MPV 7.5 (7.4-10.4) fL Neut % (Auto) 56.4 (46-82) % Lymph % (Auto) 31.0 (13-37) % [place] % (Auto) 8.8 (4-12) % Eos % (Auto) 3 (1.0-5.0) % Baso % (Auto) 1 (0-2) % Neut # (Auto) 2.3 (1.6-8.3) # Lymph # (Auto) 1.2 (0.6-5.0) # [place] # (Auto) 0.3 (0.0-1.3) # Eos # (Auto) 0.1 (0.0-0.8) # Baso # (Auto) 0.0 (0.0-0.2) # ESR 31 H (0-20) mm/hr Sodium 138 (135-145) mmol/L Potassium 4.0 (3.5-5.3) mmol/L Chloride 104 (100-110) mmol/L Carbon Dioxide 27 (23-29) mmol/L BUN 22 (8-23) mg/dL Creatinine 0.7 (0.6-1.3) mg/dL Est Cr Clr Drug Dosing 52.14 mL/min Estimated GFR (MDRD) > 60 (>60) BUN/Creatinine Ratio 31.4 H (9-20) Glucose 93 (80-116) mg/dL Calcium 8.4 L (8.6-10.2) mg/dL Total Bilirubin 0.2 (0.1-1.3) mg/dL AST 12 D (5-27) IU/L ALT 3 L (14-26) IU/L Alkaline Phosphatase 55 L (56-112) IU/L C-Reactive Protein < 0.5 (0.0-1.0) mg/dL Total Protein 5.7 L (6.0-8.0) g/dL Albumin 3.0 L (3.2-4.6) g/dL Globulin 2.7 g/dL Albumin/Globulin Ratio 1.1 Jeffrey Results Last 24 Hours: Microbiology 07/18/17 22:55 Gastric Occult Blood - Final Gastric Fluid Med Orders - Current: Current Medications Acetaminophen (Tylenol Extra Strength) 1,000 mg PO Q8H PRN PRN Reason: Pain Amlodipine Besylate (Norvasc) 5 mg PO DAILY [facility] Last Admin: 07/18/17 08:23 Dose: 5 mg Aspirin (Halfprin) 81 mg PO DAILY [facility] Last Admin: 07/18/17 08:22 Dose: 81 mg Calcium Carbonate (Calcium Carbonate/Vitamin D 1250 Mg-200 Unit) 1 tab PO BIDMEALS [facility] Last Admin: 07/18/17 17:12 Dose: 1 tab Calcium Carbonate/Glycine (Tums) 1,000 mg PO QID PRN PRN Reason: Indigestion Last Admin: 07/18/17 11:04 Dose: 1,000 mg Cholecalciferol (Vitamin D3) 1,000 units PO DAILY [facility] Last Admin: 07/18/17 08:23 Dose: 1,000 units Enoxaparin Sodium (Lovenox) 30 mg SUBCUT Q24H [facility] Last Admin: 07/18/17 11:05 Dose: 30 mg Ferrous Sulfate (Ferrous Sulfate) 325 mg PO DAILY [facility] Last Admin: 07/18/17 08:22 Dose: 325 mg Fexofenadine HCl (Kathryn) 60 mg PO BID PRN PRN Reason: Other Stop: 07/21/17 21:00 Last Admin: 07/18/17 09:57 Dose: 60 mg Furosemide (Lasix) 20 mg PO DAILY PRN PRN Reason: SWELLING Cefazolin Sodium/Dextrose 2 gm (/ Premix) 50 mls @ 100 mls/hr IV Q8H [facility] Stop: 08/04/17 22:01 Last Admin: 07/19/17 06:25 Dose: 100 mls/hr Sodium Chloride (Normal Saline) 250 mls @ 125 mls/hr IV ASDIRECTED [facility] Last Admin: 07/18/17 13:30 Dose: 125 mls/hr Levothyroxine Sodium (Levothyroxine) 125 mcg PO 0600 [facility] Last Admin: 07/19/17 06:28 Dose: 125 mcg Metoprolol Tartrate (Lopressor) 50 mg PO BID [facility] Last Admin: 07/18/17 20:27 Dose: 50 mg Non-Formulary Medication ( Omeprazole 20mg) * Ptom 1 each PO BID@0600,1800 [facility] Last Admin: 07/19/17 06:27 Dose: 1 each Ondansetron HCl (Zofran Odt) 4 mg PO Q6H PRN PRN Reason: Nausea/Vomiting Last Admin: 07/19/17 06:34 Dose: 4 mg Oxycodone HCl (Oxycodone) 5 mg PO Q4H PRN PRN Reason: MODERATE/SEVERE PAIN Last Admin: 07/02/17 03:27 Dose: 5 mg Polyethylene Glycol (Miralax) 17 gm PO DAILY PRN PRN Reason: Constipation Rifampin (Rifampin) 600 mg PO DAILY [facility] Stop: 08/09/17 12:00 Last Admin: 07/18/17 08:23 Dose: 600 mg Ropinirole HCl (Requip) 0.25 mg PO DAILY PRN PRN Reason: RESTLESS LEGS Ropinirole HCl (Requip) 0.5 mg PO BEDTIME [facility] Last Admin: 07/18/17 20:26 Dose: 0.5 mg Saccharomyces Boulardii (Florastor) 250 mg PO TID [facility] Last Admin: 07/18/17 20:25 Dose: 250 mg Senna/Docusate Sodium (Senna Plus) 1 tab PO DAILY PRN PRN Reason: Constipation Sodium Chloride (Saline Flush) 10 ml FLUSH ASDIRECTED PRN PRN Reason: IV Use Last Admin: 07/19/17 06:29 Dose: 10 ml Tramadol HCl (Ultram) 50 mg PO Q6H PRN PRN Reason: Pain Last Admin: 07/02/17 08:02 Dose: 50 mg Discontinued Medications Acetaminophen (Tylenol Extra Strength) 1,000 mg PO Q8H [facility] Last Admin: 07/18/17 06:48 Dose: Not Given Calcium Carbonate/Glycine (Tums) 500 mg PO QID PRN PRN Reason: Indigestion Last Admin: 07/16/17 19:13 Dose: 500 mg Calcium Carbonate/Glycine (Tums) 500 mg PO ONETIME ONE Stop: 07/16/17 14:25 Last Admin: 07/16/17 14:31 Dose: 500 mg Non-Formulary Medication ( Omeprazole 20mg) * Ptom 1 each PO DAILY@0600 [facility] Last Admin: 07/17/17 05:53 Dose: 1 each Non-Formulary Medication (Nf Drug) 1 each PO Q12H [facility] Last Admin: 07/17/17 17:40 Dose: Not Given Nystatin (Mycostatin) 5 ml PO QID [facility] Last Admin: 07/12/17 08:36 Dose: Not Given Pantoprazole Sodium (Protonix) 40 mg PO 0600 [facility] Last Admin: 07/12/17 05:59 Dose: 40 mg Polyethylene Glycol (Miralax) 17 gm PO DAILY [facility] Last Admin: 07/12/17 08:36 Dose: Not Given Senna/Docusate Sodium (Senna Plus) 1 tab PO BID [facility] Last Admin: 07/12/17 08:37 Dose: Not Given Tramadol HCl (Ultram) 50 mg PO Q6H [facility] Last Admin: 06/30/17 08:08 Dose: Not Given - Exam General: Alert, Oriented HEENT: Pupils Equal, Pupils Reactive, EOMI, Mucous Membr. Moist/[place] Neck: Supple Lungs: Clear to Auscultation, Normal Respiratory Effort - Problem List & Annotations (1) GERD (gastroesophageal reflux disease) SNOMED Code(s): 301489566 Code(s): K21.9 - GASTRO-ESOPHAGEAL REFLUX DISEASE WITHOUT ESOPHAGITIS Status: Acute Current Visit: Yes Qualifiers: Esophagitis presence: with esophagitis Qualified Code(s): K21.0 - Gastro- esophageal reflux disease with esophagitis (2) Hematemesis SNOMED Code(s): 3081722 Code(s): K92.0 - HEMATEMESIS Status: Acute Current Visit: Yes Qualifiers: Nausea presence: with nausea Qualified Code(s): K92.0 - Hematemesis (3) Infected prosthetic knee joint SNOMED Code(s): 574455485 Code(s): T84.59XA - INFECT/INFLM REACTION DUE TO OTH INTERNAL JOINT PROSTH, INIT; Z96.659 - PRESENCE OF UNSPECIFIED ARTIFICIAL KNEE JOINT Status: Acute Current Visit: Yes Qualifiers: Encounter type: subsequent encounter Qualified Code(s): T84.59XD - Infection and inflammatory reaction due to other internal joint prosthesis, subsequent encounter; Z96.659 - Presence of unspecified artificial knee joint; Z96.659 - Presence of unspecified artificial knee joint (4) Anemia SNOMED Code(s): 261132150 Code(s): D64.9 - ANEMIA, UNSPECIFIED Status: Acute Current Visit: Yes Qualifiers: Chronic kidney disease stage: unspecified stage - Problem List Review Problem List Initiated/Reviewed/Updated: Yes - Plan Plan:: I will add Zantac 150 milligrams by mouth twice a day. I've ordered for a repeat CBC, CMP, and I'll obtain type and screen. I will consult Dr. Rocha to see the patient needs an upper GI study. Helicobacter pylori antigen testing was done in the stool In the meantime we'll continue with the PPI, omeprazole. Because of suspected upper GI bleed, I have discontinued aspirin which he takes for primary prevention and Lovenox for DVT prophylaxis
[2017-07-19] MEDS: Ferrous Sulfate 325 MG Tab PO SCH (09:29)
[2017-07-19] MEDS: Calcium Carbonate/Vitamin D3 1250 MG-200 Unit Tab PO SCH ×2 (09:29→17:44)
[2017-07-19] MEDS: Aspirin 81 MG Tab.EC PO SCH (09:30)
[2017-07-19] MEDS: Saccharomyces Boulardii (Probiotic) 250 MG Cap PO SCH ×3 (09:30→21:27)
[2017-07-19] MEDS: Metoprolol Tartrate 50 MG Tab PO SCH ×2 (09:30→21:27)
[2017-07-19] MEDS: Rifampin 300 MG Cap PO SCH (09:32)
[2017-07-19] MEDS: amLODIPine 5 MG Tab PO SCH (09:32)
[2017-07-19] MEDS: Cholecalciferol (Vitamin D3) 1,000 Unit Tab PO SCH (09:33)
[2017-07-19] MEDS: Famotidine 20 MG Tab PO SCH ×2 (10:32→21:30)
[2017-07-19] MEDS: Sodium Chloride 0.9% 250 ML IV SCH (15:34)
--- NOTE | 2017-07-19 16:15 | PCM.CONS ---
H&P History of Present Illness - General Date of Service: 07/19/17 Admit Problem/Dx: Patient doing well. She saw the infectious disease doctor yesterday and Rocky. He put on probiotics and order some labs that we put into the orders yesterday. She states she still has amber in her left knee. There is no erythema, pain or drainage. She denies fevers or chills. - History of Present Illness Initial Comments - Free Text/Narative: Pt with hx of epigastric discomfort and nausea. Made worse with eating. Usual meds such as antiacids, PPI, etc have not helped with her sx. On vomiting recently was noted to have Heme + emesis, (occult). She has noted a brown to burgandy emesis as well. She has recently been noted to have a 2 gram drop in her Hgb. She does have a hx of GERD as well. left knee Pain Score (Numeric/FACES): 0 DENIES ANY PAIN WHEN ASKED AT PRESENT TIME. Pain Score (Numeric/FACES): 0 abdomen Pain Score (Numeric/FACES): 3 - Related Data Allergies/Adverse Reactions: Allergies Allergy/AdvReac Type Severity Reaction Status Date / Time morphine Allergy Nausea and Verified 06/29/17 13:20 Vomiting Home Medications: Home Meds Acetaminophen [Tylenol Extra Strength] 1,000 mg PO Q8H 06/29/17 [History] Aspirin [Halfprin] 81 mg PO DAILY 06/29/17 [History] Calcium Carbonate [Tums] 500 mg PO QID PRN 06/29/17 [History] Calcium Carbonate/Vitamin D3 [Calcium 500-Vit D3 200 Caplet] 1 tab PO BIDMEALS 06/29/17 [History] Cholecalciferol (Vitamin D3) [Vitamin D3] 1,000 units PO DAILY 06/29/17 [History ] Furosemide 20 mg PO DAILY PRN 06/29/17 [History] Iron,Carbonyl/Ascorbic Acid [Vitron-C Tablet] 1 each PO DAILY 06/29/17 [History] Levothyroxine 125 mcg PO DAILY 06/29/17 [History] Metoprolol Tartrate [Lopressor] 50 mg PO BID 06/29/17 [History] Nystatin [Mycostatin] 500,000 unit PO QID 06/29/17 [History] Omeprazole 20 mg PO DAILY 06/29/17 [History] Polyethylene Glycol 3350 [MiraLAX] 17 gm PO DAILY 06/29/17 [History] Rifampin 600 mg PO DAILY 06/29/17 [History] Sennosides/Docusate Sodium [Senna-S] 1 tab PO BID 06/29/17 [History] amLODIPine [Norvasc] 5 mg PO DAILY 06/29/17 [History] oxyCODONE 5 mg PO Q4H PRN 06/29/17 [History] rOPINIRole [Requip] 0.25 mg PO DAILY PRN 06/29/17 [History] rOPINIRole [Requip] 0.5 mg PO BEDTIME 06/29/17 [History] traMADol [Ultram] 50 mg PO Q6H 06/29/17 [History] Past Medical History HEENT History: Reports: Cataract Respiratory History: Reports: Pneumonia, Recurrent Gastrointestinal History: Reports: GERD [employer]IAN History: Reports: Other (See Below) Other OB/BYN History: D and C x2 Musculoskeletal History: Reports: Osteoporosis Neurological History: Reports: None Psychiatric History: Reports: Anxiety Endocrine/Metabolic History: Reports: Hypothyroidism, Osteoporosis Oncologic (Cancer) History: Reports: Breast - Infectious Disease History Infectious Disease History: Reports: Chicken Pox, Measles, Mumps Other Infectious Disease History: MSSA cultured at [facility] in [place]. - Past Surgical History HEENT Surgical History: Reports: Oral Surgery GI Surgical History: Reports: Appendectomy, Cholecystectomy Musculoskeletal Surgical History: Reports: Arthroscopic Knee, Arthroscopic Procedure, Knee Replacement Oncologic Surgical History: Reports: Biopsy of Breast, Mastectomy Social & Family History - Family History Family Medical History: Noncontributory - Tobacco Use Smoking Status *Q: Never Smoker Second Hand Smoke Exposure: No - Caffeine Use Caffeine Use: Reports: Coffee - Recreational Drug Use Recreational Drug Use: No H&P Review of Systems - Review of Systems: Review Of Systems: See Below Pulmonary: Reports: No Symptoms Cardiovascular: Reports: Chest Pain Gastrointestinal: Reports: Vomiting. Denies: Melena Musculoskeletal: Reports: Joint Pain Exam - Exam Exam: See Below - Vital Signs Vital Signs: Last Vital Signs Temp 36.6 C 07/19/17 07:25 Pulse 81 07/19/17 09:30 Resp 18 07/19/17 07:25 BP 132/76 07/19/17 09:32 Pulse Ox 94 L 07/19/17 07:25 Weight: 102.512 kg - Exam General: Alert, Oriented, Cooperative, Mild Distress Lungs: Clear to Auscultation, Normal Respiratory Effort Cardiovascular: Regular Rate, Regular Rhythm GI/Abdominal Exam: Normal Bowel Sounds, Soft, Non-Tender, No Organomegaly, No Distention - Patient Data Lab Results Last 24 hrs: Laboratory Results - last 24 hr 07/19/17 07/19/17 07/19/17 Range/Units 05:50 05:50 05:50 WBC 3.9 L (4.5-12.0) X10-3/uL RBC 2.80 L (3.23-5.20) x10(6)uL Hgb 8.4 L (11.5-15.5) g/dL Hct 25.9 L (30.0-51.3) % MCV 92.4 (80-96) fL MCH 30.0 (27.7-33.6) pg MCHC 32.5 (32.2-35.4) g/dL RDW 14.2 (11.5-15.5) % Plt Count 232 (125-369) X10(3)uL MPV 7.5 (7.4-10.4) fL Neut % (Auto) 56.4 (46-82) % Lymph % (Auto) 31.0 (13-37) % Shackelford % (Auto) 8.8 (4-12) % Eos % (Auto) 3 (1.0-5.0) % Baso % (Auto) 1 (0-2) % Neut # (Auto) 2.3 (1.6-8.3) # Lymph # (Auto) 1.2 (0.6-5.0) # Shackelford # (Auto) 0.3 (0.0-1.3) # Eos # (Auto) 0.1 (0.0-0.8) # Baso # (Auto) 0.0 (0.0-0.2) # ESR 31 H (0-20) mm/hr Sodium 138 (135-145) mmol/L Potassium 4.0 (3.5-5.3) mmol/L Chloride 104 (100-110) mmol/L Carbon Dioxide 27 (23-29) mmol/L BUN 22 (8-23) mg/dL Creatinine 0.7 (0.6-1.3) mg/dL Est Cr Clr Drug Dosing 52.14 mL/min Estimated GFR (MDRD) > 60 (>60) BUN/Creatinine Ratio 31.4 H (9-20) Glucose 93 (80-116) mg/dL Calcium 8.4 L (8.6-10.2) mg/dL Total Bilirubin 0.2 (0.1-1.3) mg/dL AST 12 D (5-27) IU/L ALT 3 L (14-26) IU/L Alkaline Phosphatase 55 L (56-112) IU/L C-Reactive Protein < 0.5 (0.0-1.0) mg/dL Total Protein 5.7 L (6.0-8.0) g/dL Albumin 3.0 L (3.2-4.6) g/dL Globulin 2.7 g/dL Albumin/Globulin Ratio 1.1 Blood Type B NEGATIVE Gel Antibody Screen Negative Result Diagrams: 07/19/17 05:50 07/19/17 05:50 Jeffrey Results Last 24 hrs: Microbiology 07/18/17 22:55 Gastric Occult Blood - Final Gastric Fluid Consult PN Assessment/Plan (1) Anemia SNOMED Code(s): 152584232 Code(s): D64.9 - ANEMIA, UNSPECIFIED Current Visit: Yes Qualifiers: Chronic kidney disease stage: unspecified stage (2) GERD (gastroesophageal reflux disease) SNOMED Code(s): 618947271 Code(s): K21.9 - GASTRO-ESOPHAGEAL REFLUX DISEASE WITHOUT ESOPHAGITIS Current Visit: Yes Qualifiers: Esophagitis presence: with esophagitis Qualified Code(s): K21.0 - Gastro- esophageal reflux disease with esophagitis (3) Hematemesis SNOMED Code(s): 5625477 Code(s): K92.0 - HEMATEMESIS Current Visit: Yes Qualifiers: Nausea presence: with nausea Qualified Code(s): K92.0 - Hematemesis Problem List Initiated/Reviewed/Updated: Yes Plan: EGD in am. The procedure and risks were explained to the pt to include bleeding , infection and perforation. She expressed understanding and asks us to proceed.
[2017-07-19] MEDS: rOPINIRole 0.5 MG Tab PO SCH (21:30)
[2017-07-20] MEDS: ceFAZolin 2 GM in Premix Bag 1 BAG IV SCH ×3 (06:07→21:58)
[2017-07-20] MEDS: Sodium Chloride 0.9% 10 ML Syringe FLUSH PRN ×3 (06:12→22:00)
[2017-07-20] MEDS: Levothyroxine 125 MCG Tab PO SCH (06:13)
[2017-07-20] MEDS: OMEPRAZOLE 20 MG PO SCH ×2 (06:16→17:20)
[2017-07-20] MEDS: Famotidine 20 MG Tab PO SCH ×3 (07:57→20:52)
[2017-07-20] MEDS: Calcium Carbonate/Vitamin D3 1250 MG-200 Unit Tab PO SCH ×2 (07:57→17:20)
[2017-07-20] MEDS: Saccharomyces Boulardii (Probiotic) 250 MG Cap PO SCH ×4 (07:57→20:51)
[2017-07-20] MEDS: Cholecalciferol (Vitamin D3) 1,000 Unit Tab PO SCH ×2 (07:57→09:16)
[2017-07-20] MEDS: amLODIPine 5 MG Tab PO SCH ×2 (07:58→09:15)
[2017-07-20] MEDS: Rifampin 300 MG Cap PO SCH (08:00)
[2017-07-20] MEDS: Metoprolol Tartrate 50 MG Tab PO SCH ×2 (08:00→20:51)
[2017-07-20] MEDS ORDERED: Lidocaine 2% 100 MG/5 ML Syringe IVPUSH ONE (09:30)
[2017-07-20] MEDS ORDERED: Propofol 200 MG/20 ML SDV IV ONE (09:30)
--- NOTE | 2017-07-20 09:56 | PCM.OPNOTE ---
- General Post-Op/Procedure Note Date of Surgery/Procedure: 07/20/17 Operative Procedure(s): egd with biopsy Findings: hiatal hernia mild gastritis, esophagitis. Pre Op Diagnosis: heme + emesis Post-Op Diagnosis: hiatal hernia. mild gastritis, esophagitis. Anesthesia Technique: MAC Primary Surgeon: Fredrick Rocha Anesthesia Provider: Beny Hill Pathology: stomach and esophagus Complications: None Condition: Good Free Text/Narrative:: Intake & Output 07/19/17 07/20/17 07/20/17 22:59 06:59 14:59 Intake Total 80 80 Balance 80 80 see dictation
[2017-07-20] MEDS: Ferrous Sulfate 325 MG Tab PO SCH (11:15)
--- NOTE | 2017-07-20 17:32 | OR ---
DATE OF OPERATION: 07/20/2017 SURGEON: Fredrick Rocha MD PROCEDURE PERFORMED: Esophagogastroduodenoscopy with cold forceps biopsy. PREOPERATIVE DIAGNOSIS: Gagging, heme-positive emesis and drop in hemoglobin. POSTOPERATIVE DIAGNOSIS: Hiatal hernia, mild gastritis, mild esophagitis. INDICATIONS FOR PROCEDURE: This is an 82-year-old white female who is referred by the hospitalist with the above-mentioned complaints. She was offered and accepted an EGD. DESCRIPTION OF OPERATION: After an excellent IV sedation was administered, the bite block was inserted. The flexible endoscope was passed without difficulty down the patient's esophagus into the stomach. The stomach was insufflated. The scope was passed through the pylorus to the second portion of the duodenum and slowly withdrawn. The following findings were noted. Duodenum was unremarkable. Stomach demonstrates a hiatal hernia with approximately 1/3rd of the stomach in the chest. The intraabdominal portion of the stomach was unremarkable. The intrathoracic portion demonstrated some mild gastritis and biopsies and photo were taken. GE junction demonstrated some mild erythema and biopsies were taken of that area. The remainder of the esophageal exam was unremarkable. The stomach was deflated. Scope was removed. The findings do explain the occult blood findings in her emesis, but do not essentially explain the drop in her hemoglobin. /[id number] /BEKAL
[2017-07-20] MEDS: rOPINIRole 0.5 MG Tab PO SCH (20:52)
[2017-07-21] MEDS: ceFAZolin 2 GM in Premix Bag 1 BAG IV SCH ×3 (06:09→21:51)
[2017-07-21] MEDS: Sodium Chloride 0.9% 10 ML Syringe FLUSH PRN ×4 (06:11→22:46)
[2017-07-21] MEDS: Levothyroxine 125 MCG Tab PO SCH (06:19)
[2017-07-21] MEDS: OMEPRAZOLE 20 MG PO SCH ×2 (06:20→17:49)
[2017-07-21] MEDS: Calcium Carbonate/Vitamin D3 1250 MG-200 Unit Tab PO SCH ×2 (08:29→17:50)
[2017-07-21] MEDS: Saccharomyces Boulardii (Probiotic) 250 MG Cap PO SCH ×3 (08:29→20:42)
[2017-07-21] MEDS: Ferrous Sulfate 325 MG Tab PO SCH (08:29)
[2017-07-21] MEDS: amLODIPine 5 MG Tab PO SCH (08:30)
[2017-07-21] MEDS: Metoprolol Tartrate 50 MG Tab PO SCH ×2 (08:30→20:42)
[2017-07-21] MEDS: Famotidine 20 MG Tab PO SCH ×2 (08:31→20:43)
[2017-07-21] MEDS: Rifampin 300 MG Cap PO SCH (08:31)
[2017-07-21] MEDS: Cholecalciferol (Vitamin D3) 1,000 Unit Tab PO SCH (08:32)
[2017-07-21] MEDS: rOPINIRole 0.5 MG Tab PO SCH (20:43)
[2017-07-21] MEDS: Calcium Carbonate 500 MG Tab.Chew PO PRN (22:51)
[2017-07-22] MEDS: ceFAZolin 2 GM in Premix Bag 1 BAG IV SCH ×3 (05:57→21:11)
[2017-07-22] MEDS: Levothyroxine 125 MCG Tab PO SCH (05:59)
[2017-07-22] MEDS: OMEPRAZOLE 20 MG PO SCH ×2 (05:59→17:55)
[2017-07-22] MEDS: Sodium Chloride 0.9% 10 ML Syringe FLUSH PRN ×3 (06:52→22:14)
[2017-07-22] MEDS: Calcium Carbonate/Vitamin D3 1250 MG-200 Unit Tab PO SCH ×2 (08:55→17:57)
[2017-07-22] MEDS: Ferrous Sulfate 325 MG Tab PO SCH (08:55)
[2017-07-22] MEDS: amLODIPine 5 MG Tab PO SCH (08:56)
[2017-07-22] MEDS: Metoprolol Tartrate 50 MG Tab PO SCH ×2 (08:56→21:03)
[2017-07-22] MEDS: Saccharomyces Boulardii (Probiotic) 250 MG Cap PO SCH ×3 (08:56→21:03)
[2017-07-22] MEDS: Rifampin 300 MG Cap PO SCH (08:57)
[2017-07-22] MEDS: Cholecalciferol (Vitamin D3) 1,000 Unit Tab PO SCH (08:57)
[2017-07-22] MEDS: Famotidine 20 MG Tab PO SCH ×2 (08:57→21:05)
[2017-07-22] MEDS ORDERED: FLU Vacc QS 2017-18 (36mos UP)/PF 60 MCG/0.5 ML Syringe IM ONE (09:00)
[2017-07-22] MEDS: Sodium Chloride 0.9% 250 ML IV SCH ×2 (13:45→21:19)
[2017-07-22] MEDS: rOPINIRole 0.5 MG Tab PO SCH (21:05)
[2017-07-22] MEDS: Calcium Carbonate 500 MG Tab.Chew PO PRN (21:11)
[2017-07-23] MEDS: Levothyroxine 125 MCG Tab PO SCH (05:58)
[2017-07-23] MEDS: ceFAZolin 2 GM in Premix Bag 1 BAG IV SCH ×3 (06:00→21:15)
[2017-07-23] MEDS: OMEPRAZOLE 20 MG PO SCH ×4 (06:00→17:02)
[2017-07-23] MEDS: Sodium Chloride 0.9% 10 ML Syringe FLUSH PRN ×2 (06:56→14:00)
[2017-07-23] MEDS: Calcium Carbonate/Vitamin D3 1250 MG-200 Unit Tab PO SCH ×2 (09:06→19:19)
[2017-07-23] MEDS: Saccharomyces Boulardii (Probiotic) 250 MG Cap PO SCH ×3 (09:06→21:11)
[2017-07-23] MEDS: Ferrous Sulfate 325 MG Tab PO SCH (09:06)
[2017-07-23] MEDS: amLODIPine 5 MG Tab PO SCH (09:07)
[2017-07-23] MEDS: Famotidine 20 MG Tab PO SCH ×2 (09:07→21:10)
[2017-07-23] MEDS: Metoprolol Tartrate 50 MG Tab PO SCH ×2 (09:07→21:11)
[2017-07-23] MEDS: Cholecalciferol (Vitamin D3) 1,000 Unit Tab PO SCH (09:09)
[2017-07-23] MEDS: Rifampin 300 MG Cap PO SCH (09:09)
[2017-07-23] MEDS ORDERED: Pantoprazole 40 MG Tab.CR PO SCH (12:00)
--- NOTE | 2017-07-23 13:28 | PN ---
DATE SEEN: 07/23/2017 SUBJECTIVE: Gogo Lua is an 82-year-old, female, admitted to [facility] for appropriate intervention for a left lateral leg infection. She has had surgery times, on two occasions. Underwent endoscopy on 07/20/2017, revealed hiatal hernia, mild gastritis, and appropriate intervention. Symptoms are persisting. Little reproducible pain at the incision site. LABORATORY STUDIES: Hemoglobin is 10.1, 8.4, and 8.4. White count is 4400, 3900, and 4400 by review. OBJECTIVE: VITAL SIGNS: Blood pressure 128/71, 82 is the pulse, respirations 20, and O2 saturation 95%. GENERAL: In good spirits. CHEST: Clear. HEART: Regular. ABDOMEN: Benign. SKIN: Without rash. EXTREMITIES: Left lateral lower extremity surgical wound is intact with some induration. ASSESSMENT: 1. Complicated infection of lateral lower leg, previous total knee arthroplasties. 2. Anemia of uncertain origin. PLAN: Again as noted, the scope revealed upper GI related symptoms. Gastritis without other complicating issues. Feels the heartburn has not been well controlled. We will make adjustments accordingly. Medications, care and treatment appropriate, and PICC line in good position, left arm. /[id number] VERITO/JESSICA
[2017-07-23] MEDS: Sodium Chloride 0.9% 250 ML IV SCH (14:00)
[2017-07-23] MEDS: rOPINIRole 0.5 MG Tab PO SCH (21:11)
[2017-07-23] MEDS: Calcium Carbonate 500 MG Tab.Chew PO PRN (22:17)
[2017-07-24] MEDS: ceFAZolin 2 GM in Premix Bag 1 BAG IV SCH ×3 (05:58→21:25)
[2017-07-24] MEDS: Levothyroxine 125 MCG Tab PO SCH (05:58)
[2017-07-24] MEDS: OMEPRAZOLE 20 MG PO SCH ×2 (05:58→19:51)
[2017-07-24] MEDS: Sodium Chloride 0.9% 10 ML Syringe FLUSH PRN ×3 (06:02→13:40)
[2017-07-24] MEDS: Calcium Carbonate/Vitamin D3 1250 MG-200 Unit Tab PO SCH ×2 (08:52→19:52)
[2017-07-24] MEDS: Ferrous Sulfate 325 MG Tab PO SCH (08:52)
[2017-07-24] MEDS: Saccharomyces Boulardii (Probiotic) 250 MG Cap PO SCH ×3 (08:53→21:19)
[2017-07-24] MEDS: Metoprolol Tartrate 50 MG Tab PO SCH ×2 (08:56→21:21)
[2017-07-24] MEDS: amLODIPine 5 MG Tab PO SCH (08:57)
[2017-07-24] MEDS: Famotidine 20 MG Tab PO SCH ×2 (08:58→21:21)
[2017-07-24] MEDS: Rifampin 300 MG Cap PO SCH (08:58)
[2017-07-24] MEDS: Cholecalciferol (Vitamin D3) 1,000 Unit Tab PO SCH (08:59)
[2017-07-24] MEDS: Aluminum Hydroxide/Magnesium Hydroxide Susp 30 ML Cup PO SCH ×4 (10:10→21:19)
[2017-07-24] MEDS: rOPINIRole 0.5 MG Tab PO SCH (21:21)
[2017-07-24] MEDS: Sodium Chloride 0.9% 250 ML IV SCH (21:26)
[2017-07-25] MEDS: ceFAZolin 2 GM in Premix Bag 1 BAG IV SCH ×3 (05:58→21:20)
[2017-07-25] MEDS: Levothyroxine 125 MCG Tab PO SCH (06:03)
[2017-07-25] MEDS: OMEPRAZOLE 20 MG PO SCH ×2 (06:04→17:26)
[2017-07-25] MEDS: Sodium Chloride 0.9% 10 ML Syringe FLUSH PRN ×3 (06:51→14:35)
[2017-07-25] MEDS: Calcium Carbonate/Vitamin D3 1250 MG-200 Unit Tab PO SCH ×2 (08:28→17:26)
[2017-07-25] MEDS: Saccharomyces Boulardii (Probiotic) 250 MG Cap PO SCH ×3 (08:28→21:19)
[2017-07-25] MEDS: Ferrous Sulfate 325 MG Tab PO SCH (08:28)
[2017-07-25] MEDS: Metoprolol Tartrate 50 MG Tab PO SCH ×2 (08:29→21:19)
[2017-07-25] MEDS: Aluminum Hydroxide/Magnesium Hydroxide Susp 30 ML Cup PO SCH ×4 (08:32→21:17)
[2017-07-25] MEDS: amLODIPine 5 MG Tab PO SCH (08:33)
[2017-07-25] MEDS: Rifampin 300 MG Cap PO SCH (08:35)
[2017-07-25] MEDS: Famotidine 20 MG Tab PO SCH ×2 (08:35→21:19)
[2017-07-25] MEDS: Cholecalciferol (Vitamin D3) 1,000 Unit Tab PO SCH (08:36)
--- NOTE | 2017-07-25 11:04 | PN ---
DATE SEEN: 07/25/2017 SUBJECTIVE: Gogo Lua is an 82-year-old female seen today for review. On antibiotic therapy, until 08/04/2017. Doing well. PICC line in place, left arm. Workup for hemoglobins, 8.4 and 8.4, normochromic and normocytic, indices pending. Reticulocyte count returned at 3, and iron studies are not available. Gastric occult was positive. Stool for H. pylori was negative. Pathology is still pending. Intervention, close observation and treatment. Heartburn much better controlled on Pepcid 20 mg b.i.d. Continued observation of laboratory studies. /[id number] VERITO/JESSICA
[2017-07-25 15:02] LABS: UNSATURATED IRON BIND CAPACITY 177 ug/dL (112-347)
[2017-07-25] MEDS: rOPINIRole 0.5 MG Tab PO SCH (21:18)
[2017-07-26] MEDS: OMEPRAZOLE 20 MG PO SCH ×2 (06:42→17:29)
[2017-07-26] MEDS: ceFAZolin 2 GM in Premix Bag 1 BAG IV SCH ×3 (06:42→22:13)
[2017-07-26] MEDS: Levothyroxine 125 MCG Tab PO SCH (06:42)
[2017-07-26] MEDS: Sodium Chloride 0.9% 10 ML Syringe FLUSH PRN ×5 (07:39→23:08)
[2017-07-26] MEDS: Calcium Carbonate/Vitamin D3 1250 MG-200 Unit Tab PO SCH ×2 (08:41→17:30)
[2017-07-26] MEDS: Metoprolol Tartrate 50 MG Tab PO SCH ×2 (08:42→22:12)
[2017-07-26] MEDS: Ferrous Sulfate 325 MG Tab PO SCH (08:42)
[2017-07-26] MEDS: Cholecalciferol (Vitamin D3) 1,000 Unit Tab PO SCH (08:42)
[2017-07-26] MEDS: Saccharomyces Boulardii (Probiotic) 250 MG Cap PO SCH ×3 (08:43→22:12)
[2017-07-26] MEDS: Aluminum Hydroxide/Magnesium Hydroxide Susp 30 ML Cup PO SCH ×4 (08:43→22:12)
[2017-07-26] MEDS: amLODIPine 5 MG Tab PO SCH (08:44)
[2017-07-26] MEDS: Rifampin 300 MG Cap PO SCH (08:44)
[2017-07-26] MEDS: Famotidine 20 MG Tab PO SCH ×2 (08:44→22:12)
--- NOTE | 2017-07-26 08:59 | PN ---
DATE SEEN: 07/24/2017 SUBJECTIVE: Yuli Lua is an 82-year-old, female seen today for review. She has an expected short-term stay for antibiotic prophylaxis. PICC line in place in left arm until 08/04/2017. Medications include cefazolin 2 g IV q.8 hours. Other medications appropriate. Upper endoscopy revealed gastritis, pathology pending for biopsies. Presently on Prilosec 20 mg b.i.d., Pepcid 20 mg b.i.d., continues to have heartburn. PHYSICAL EXAMINATION: VITAL SIGNS: Stable and noted. NECK: Benign. Thyroid small. CHEST: Clear. HEART: Regular. ABDOMEN: Benign. SKIN: Operative infectious wound site, left lateral leg upper 3rd revealed some induration, but interval healing. ASSESSMENT: 1. Complicated infection, left lateral leg. 2. Heartburn. PLAN: We will add some liquid antacid - Riopan, Maalox, q.i.d., complementary care and well-being. /[id number] VERITO/JESSICA
--- NOTE | 2017-07-26 10:48 | PN ---
DATE SEEN: 07/26/2017 Gogo Lua is an 82-year-old female, at [facility] for long-term antibiotic use. Schedule antibiotics until 08/04/2017. Medications reviewed and appropriate. Doing well. Pain is controlled. Ambulating and doing well. No outstanding laboratory studies to be performed. Vital signs are stable, comfortable with her care. /[id number] [id number] VERITO/JESSICA
[2017-07-26] MEDS: rOPINIRole 0.5 MG Tab PO SCH (22:13)
[2017-07-26] MEDS: Sodium Chloride 0.9% 250 ML IV SCH (22:14)
[2017-07-27] MEDS: ceFAZolin 2 GM in Premix Bag 1 BAG IV SCH ×3 (06:38→21:24)
[2017-07-27] MEDS: Levothyroxine 125 MCG Tab PO SCH (06:41)
[2017-07-27] MEDS: OMEPRAZOLE 20 MG PO SCH ×2 (06:42→17:07)
[2017-07-27] MEDS: Sodium Chloride 0.9% 10 ML Syringe FLUSH PRN ×3 (07:36→22:13)
[2017-07-27] MEDS: Ferrous Sulfate 325 MG Tab PO SCH (09:34)
[2017-07-27] MEDS: Calcium Carbonate/Vitamin D3 1250 MG-200 Unit Tab PO SCH ×2 (09:34→17:08)
[2017-07-27] MEDS: Metoprolol Tartrate 50 MG Tab PO SCH ×2 (09:35→21:13)
[2017-07-27] MEDS: Aluminum Hydroxide/Magnesium Hydroxide Susp 30 ML Cup PO SCH ×4 (09:36→21:14)
[2017-07-27] MEDS: amLODIPine 5 MG Tab PO SCH (09:37)
[2017-07-27] MEDS: Famotidine 20 MG Tab PO SCH ×2 (09:38→21:14)
[2017-07-27] MEDS: Cholecalciferol (Vitamin D3) 1,000 Unit Tab PO SCH (09:38)
[2017-07-27] MEDS: Rifampin 300 MG Cap PO SCH (09:38)
[2017-07-27] MEDS: Saccharomyces Boulardii (Probiotic) 250 MG Cap PO SCH ×3 (10:50→21:13)
--- NOTE | 2017-07-27 13:51 | PN ---
DATE SEEN: 07/27/2017 SUBJECTIVE: Yuli Lua is an 82-year-old, female, seen today for routine visit. Long-term antibiotic therapy till August 04. Wound. Postoperative changes, complicated infection. Medications on board appropriate and comfortable. Laboratory studies outstanding. Iron studies were unremarkable. TIBC, iron, IBC and ferritin all satisfactory. C-reactive protein unremarkable. TSH outstanding unremarkable. OBJECTIVE: VITAL SIGNS: Blood pressure 138/82, pulse of 80, respirations 16, O2 saturation 98%. GENERAL: In good spirits. EXTREMITIES: Lateral upper, lower leg wound healing without difficulty. Induration normal. ASSESSMENT: 1. Postoperative care, complicated infection. 2. Anemia, not related iron deficiency. 3. Pathology and GI report still pending. Complementary care and well being. Continue therapy. /[id number] VERITO/JESSICA
[2017-07-27] MEDS: rOPINIRole 0.5 MG Tab PO SCH (21:14)
[2017-07-27] MEDS: Sodium Chloride 0.9% 250 ML IV SCH (21:25)
[2017-07-28] MEDS: ceFAZolin 2 GM in Premix Bag 1 BAG IV SCH ×2 (05:30→15:59)
[2017-07-28] MEDS: Sodium Chloride 0.9% 250 ML IV SCH (05:31)
[2017-07-28] MEDS: OMEPRAZOLE 20 MG PO SCH ×2 (05:35→16:04)
[2017-07-28] MEDS: Levothyroxine 125 MCG Tab PO SCH (05:35)
[2017-07-28] MEDS: Ferrous Sulfate 325 MG Tab PO SCH (08:15)
[2017-07-28] MEDS: Calcium Carbonate/Vitamin D3 1250 MG-200 Unit Tab PO SCH ×2 (08:15→18:06)
[2017-07-28] MEDS: Saccharomyces Boulardii (Probiotic) 250 MG Cap PO SCH ×3 (08:16→21:26)
[2017-07-28] MEDS: Metoprolol Tartrate 50 MG Tab PO SCH ×2 (08:16→21:27)
[2017-07-28] MEDS: amLODIPine 5 MG Tab PO SCH (08:17)
[2017-07-28] MEDS: Aluminum Hydroxide/Magnesium Hydroxide Susp 30 ML Cup PO SCH ×4 (08:17→21:27)
[2017-07-28] MEDS: Rifampin 300 MG Cap PO SCH (08:18)
[2017-07-28] MEDS: Cholecalciferol (Vitamin D3) 1,000 Unit Tab PO SCH (08:18)
[2017-07-28] MEDS: Famotidine 20 MG Tab PO SCH ×2 (08:18→21:27)
--- NOTE | 2017-07-28 10:41 | PN ---
DATE SEEN: 07/28/2017 SUBJECTIVE: Gogo Lua is an 82-year-old, female, under long-term antibiotic therapy for complicated left lateral wound infection. Doing well. Comfortable, little fatigable, little tired. Persistent anemia. Hemoglobin since admission 84, 84, 87. Iron studies have been unremarkable. Endoscopy revealed no pathology. Stool evaluation under consideration. PLAN: We will proceed with B12, folate, and serum protein electrophoresis. She is on iron replacement therapy 325 one daily as is. Wound otherwise unremarkable. No complicating issues, tolerating care in the given environment. /[id number] VERITO/JESSICA
[2017-07-28] MEDS: Sodium Chloride 0.9% 10 ML Syringe FLUSH PRN (16:04)
[2017-07-28] MEDS: rOPINIRole 0.5 MG Tab PO SCH (21:27)
[2017-07-29] MEDS: ceFAZolin 2 GM in Premix Bag 1 BAG IV SCH ×4 (00:09→23:54)
[2017-07-29] MEDS: Sodium Chloride 0.9% 250 ML IV SCH ×2 (00:09→23:53)
[2017-07-29] MEDS: Sodium Chloride 0.9% 10 ML Syringe FLUSH PRN ×4 (00:11→17:00)
[2017-07-29] MEDS: OMEPRAZOLE 20 MG PO SCH ×2 (06:08→17:04)
[2017-07-29] MEDS: Levothyroxine 125 MCG Tab PO SCH (06:08)
[2017-07-29] MEDS: Calcium Carbonate/Vitamin D3 1250 MG-200 Unit Tab PO SCH ×2 (07:49→17:04)
[2017-07-29] MEDS: Aluminum Hydroxide/Magnesium Hydroxide Susp 30 ML Cup PO SCH ×4 (08:30→20:51)
[2017-07-29] MEDS: Famotidine 20 MG Tab PO SCH ×2 (08:31→20:52)
[2017-07-29] MEDS: amLODIPine 5 MG Tab PO SCH (08:31)
[2017-07-29] MEDS: Ferrous Sulfate 325 MG Tab PO SCH (08:31)
[2017-07-29] MEDS: Rifampin 300 MG Cap PO SCH (08:31)
[2017-07-29] MEDS: Saccharomyces Boulardii (Probiotic) 250 MG Cap PO SCH ×3 (08:31→20:51)
[2017-07-29] MEDS: Cholecalciferol (Vitamin D3) 1,000 Unit Tab PO SCH (08:31)
[2017-07-29] MEDS: Metoprolol Tartrate 50 MG Tab PO SCH ×2 (08:32→20:56)
--- NOTE | 2017-07-29 10:35 | PN ---
DATE SEEN: 07/29/2017 SUBJECTIVE: Gogo Lua is an 82-year-old female, presently in swing bed. Antibiotic therapy for a left lateral leg infection. Followed by Infectious Disease. Antibiotic therapy planned until 08/04/2017, switched to cephalexin, 2-day interval, updated visit with Infectious Disease on 08/09. Anemia still under observation. Hemoglobin 8.4 and 8.7, normochromic normocytic indices, iron studies are satisfactory, retic count was unremarkable. Upper GI endoscopy had been performed during her hospital stay with no complicating issues. B12, folate, and serum protein electrophoresis are still pending at this time. She is otherwise comfortable, wound is healing well, no complicating issues. ASSESSMENT: Wound infection, left lateral leg. PLAN: Recommendations as noted above. /[id number] VERITO/JESSICA
[2017-07-29] MEDS: rOPINIRole 0.5 MG Tab PO SCH (20:52)
[2017-07-30] MEDS: Sodium Chloride 0.9% 10 ML Syringe FLUSH PRN ×4 (00:47→22:18)
[2017-07-30] MEDS: Levothyroxine 125 MCG Tab PO SCH (05:53)
[2017-07-30] MEDS: OMEPRAZOLE 20 MG PO SCH ×2 (05:54→16:56)
--- NOTE | 2017-07-30 08:15 | PN ---
DATE SEEN: 07/30/2017 SUBJECTIVE: Gogo Lua is an 82-year-old, female, seen today for review. Complicated left lateral lower leg, left side surgical wound, MSSA infection. On antibiotic therapy including cefazolin 2 g 8-hour intervals, doing well. No pain or discomfort. Workup of her anemia; hemoglobin is 8.4 and 8.7, iron studies are satisfactory, vitamin B12 level returned normal, folate level pending, serum protein electrophoresis is pending. Etiology undetermined. Antibiotic therapy required until 08/04. Switch from at that point for 2 days cephalexin 500 mg one p.o. t.i.d. If she is doing well, discharge home. Has an upcoming appointment on 08/09/2017 with Infectious Disease. Also, put a consult in for Hematology, hopefully the same date 08/09/2017 for a more complete workup of her unexplained anemia. Intervention and care. Close observation. OBJECTIVE: Wound, left lateral leg, healing without difficulty. ASSESSMENT: Complicated left leg infection. PLAN: Recommendations as above. /[id number] VERITO/JESSICA
[2017-07-30] MEDS: Calcium Carbonate/Vitamin D3 1250 MG-200 Unit Tab PO SCH ×2 (08:19→17:51)
[2017-07-30] MEDS: Ferrous Sulfate 325 MG Tab PO SCH (08:19)
[2017-07-30] MEDS: Saccharomyces Boulardii (Probiotic) 250 MG Cap PO SCH ×3 (08:19→21:02)
[2017-07-30] MEDS: Metoprolol Tartrate 50 MG Tab PO SCH ×2 (08:20→21:03)
[2017-07-30] MEDS: Aluminum Hydroxide/Magnesium Hydroxide Susp 30 ML Cup PO SCH ×4 (08:20→21:01)
[2017-07-30] MEDS: Famotidine 20 MG Tab PO SCH ×2 (08:21→21:02)
[2017-07-30] MEDS: amLODIPine 5 MG Tab PO SCH (08:21)
[2017-07-30] MEDS: Rifampin 300 MG Cap PO SCH (08:22)
[2017-07-30] MEDS: Cholecalciferol (Vitamin D3) 1,000 Unit Tab PO SCH (08:22)
[2017-07-30] MEDS: ceFAZolin 2 GM in Premix Bag 1 BAG IV SCH ×3 (08:35→21:33)
[2017-07-30] MEDS: rOPINIRole 0.5 MG Tab PO SCH (21:02)
[2017-07-30] MEDS: Sodium Chloride 0.9% 250 ML IV SCH (21:32)
[2017-07-31] MEDS: ceFAZolin 2 GM in Premix Bag 1 BAG IV SCH ×3 (06:04→21:17)
[2017-07-31] MEDS: Levothyroxine 125 MCG Tab PO SCH (06:07)
[2017-07-31] MEDS: OMEPRAZOLE 20 MG PO SCH ×2 (06:08→17:49)
[2017-07-31] MEDS: Sodium Chloride 0.9% 10 ML Syringe FLUSH PRN ×3 (06:46→22:17)
[2017-07-31] MEDS: Calcium Carbonate/Vitamin D3 1250 MG-200 Unit Tab PO SCH ×2 (08:48→17:49)
[2017-07-31] MEDS: Saccharomyces Boulardii (Probiotic) 250 MG Cap PO SCH ×3 (08:48→21:09)
[2017-07-31] MEDS: Metoprolol Tartrate 50 MG Tab PO SCH ×2 (08:48→21:11)
[2017-07-31] MEDS: Ferrous Sulfate 325 MG Tab PO SCH (08:48)
[2017-07-31] MEDS: Aluminum Hydroxide/Magnesium Hydroxide Susp 30 ML Cup PO SCH ×4 (08:49→21:10)
[2017-07-31] MEDS: amLODIPine 5 MG Tab PO SCH (08:49)
[2017-07-31] MEDS: Famotidine 20 MG Tab PO SCH ×2 (08:50→21:10)
[2017-07-31] MEDS: Rifampin 300 MG Cap PO SCH (08:50)
[2017-07-31] MEDS: Cholecalciferol (Vitamin D3) 1,000 Unit Tab PO SCH (08:50)
[2017-07-31] MEDS: Sodium Chloride 0.9% 250 ML IV SCH (13:42)
[2017-07-31] MEDS: rOPINIRole 0.5 MG Tab PO SCH (21:10)
[2017-08-01] MEDS: Levothyroxine 125 MCG Tab PO SCH (06:01)
[2017-08-01] MEDS: ceFAZolin 2 GM in Premix Bag 1 BAG IV SCH ×3 (06:01→21:02)
[2017-08-01] MEDS: OMEPRAZOLE 20 MG PO SCH ×2 (06:02→17:23)
[2017-08-01] MEDS: Sodium Chloride 0.9% 10 ML Syringe FLUSH PRN ×3 (06:51→22:03)
[2017-08-01] MEDS: amLODIPine 5 MG Tab PO SCH (10:07)
[2017-08-01] MEDS: Aluminum Hydroxide/Magnesium Hydroxide Susp 30 ML Cup PO SCH ×4 (10:07→20:59)
[2017-08-01] MEDS: Famotidine 20 MG Tab PO SCH ×2 (10:07→20:59)
[2017-08-01] MEDS: Ferrous Sulfate 325 MG Tab PO SCH (10:08)
[2017-08-01] MEDS: Metoprolol Tartrate 50 MG Tab PO SCH ×2 (10:08→20:59)
[2017-08-01] MEDS: Saccharomyces Boulardii (Probiotic) 250 MG Cap PO SCH ×3 (10:08→20:59)
[2017-08-01] MEDS: Rifampin 300 MG Cap PO SCH (10:08)
[2017-08-01] MEDS: Cholecalciferol (Vitamin D3) 1,000 Unit Tab PO SCH (10:08)
[2017-08-01] MEDS: Calcium Carbonate/Vitamin D3 1250 MG-200 Unit Tab PO SCH ×2 (10:08→17:23)
[2017-08-01] MEDS: Sodium Chloride 0.9% 250 ML IV SCH (14:07)
[2017-08-01] MEDS: rOPINIRole 0.5 MG Tab PO SCH (20:59)
[2017-08-02] MEDS: OMEPRAZOLE 20 MG PO SCH ×2 (05:56→22:53)
[2017-08-02] MEDS: ceFAZolin 2 GM in Premix Bag 1 BAG IV SCH ×3 (05:57→22:10)
[2017-08-02] MEDS: Levothyroxine 125 MCG Tab PO SCH (05:57)
[2017-08-02] MEDS: Sodium Chloride 0.9% 10 ML Syringe FLUSH PRN ×3 (06:40→13:51)
[2017-08-02] MEDS: Aluminum Hydroxide/Magnesium Hydroxide Susp 30 ML Cup PO SCH ×4 (08:54→22:54)
[2017-08-02] MEDS: Famotidine 20 MG Tab PO SCH ×2 (08:55→22:56)
[2017-08-02] MEDS: Metoprolol Tartrate 50 MG Tab PO SCH ×2 (08:55→22:56)
[2017-08-02] MEDS: Cholecalciferol (Vitamin D3) 1,000 Unit Tab PO SCH (08:55)
[2017-08-02] MEDS: amLODIPine 5 MG Tab PO SCH (08:55)
[2017-08-02] MEDS: Calcium Carbonate/Vitamin D3 1250 MG-200 Unit Tab PO SCH ×2 (08:56→22:56)
[2017-08-02] MEDS: Ferrous Sulfate 325 MG Tab PO SCH (08:56)
[2017-08-02] MEDS: Saccharomyces Boulardii (Probiotic) 250 MG Cap PO SCH ×3 (08:56→22:56)
[2017-08-02] MEDS: Rifampin 300 MG Cap PO SCH (08:56)
[2017-08-02] MEDS: Sodium Chloride 0.9% 250 ML IV SCH (13:52)
[2017-08-02] MEDS: oxyCODONE 5 MG Tab PO PRN (14:10)
[2017-08-02] MEDS: Ondansetron 4 MG Tab.DIS PO PRN (20:25)
[2017-08-02] MEDS: rOPINIRole 0.5 MG Tab PO SCH (22:56)
[2017-08-03] MEDS: Levothyroxine 125 MCG Tab PO SCH (05:21)
[2017-08-03] MEDS: OMEPRAZOLE 20 MG PO SCH ×2 (05:21→18:39)
[2017-08-03] MEDS: ceFAZolin 2 GM in Premix Bag 1 BAG IV SCH ×3 (05:22→21:22)
[2017-08-03] MEDS: Sodium Chloride 0.9% 10 ML Syringe FLUSH PRN ×3 (05:24→21:22)
[2017-08-03] MEDS ORDERED: FLU Vacc QS 2017-18 (36mos UP)/PF 60 MCG/0.5 ML Syringe IM ONE (09:00)
[2017-08-03] MEDS: Saccharomyces Boulardii (Probiotic) 250 MG Cap PO SCH ×3 (10:26→21:12)
[2017-08-03] MEDS: Ferrous Sulfate 325 MG Tab PO SCH (10:26)
[2017-08-03] MEDS: Calcium Carbonate/Vitamin D3 1250 MG-200 Unit Tab PO SCH ×2 (10:26→18:40)
[2017-08-03] MEDS: Aluminum Hydroxide/Magnesium Hydroxide Susp 30 ML Cup PO SCH ×4 (10:35→21:12)
[2017-08-03] MEDS: Famotidine 20 MG Tab PO SCH ×3 (10:35→21:16)
[2017-08-03] MEDS: Cholecalciferol (Vitamin D3) 1,000 Unit Tab PO SCH (10:36)
[2017-08-03] MEDS: Sodium Chloride 0.9% 250 ML IV SCH (14:35)
[2017-08-03] MEDS: Rifampin 300 MG Cap PO SCH (14:41)
[2017-08-03] MEDS: amLODIPine 5 MG Tab PO SCH (14:59)
[2017-08-03] MEDS: Metoprolol Tartrate 50 MG Tab PO SCH ×2 (14:59→21:13)
[2017-08-03] MEDS: rOPINIRole 0.5 MG Tab PO SCH (21:16)
[2017-08-04] MEDS: ceFAZolin 2 GM in Premix Bag 1 BAG IV SCH ×3 (05:58→21:38)
[2017-08-04] MEDS: Levothyroxine 125 MCG Tab PO SCH (05:59)
[2017-08-04] MEDS: OMEPRAZOLE 20 MG PO SCH ×2 (05:59→17:58)
[2017-08-04] MEDS: Famotidine 20 MG Tab PO SCH ×2 (09:29→21:38)
[2017-08-04] MEDS: Ferrous Sulfate 325 MG Tab PO SCH (09:29)
[2017-08-04] MEDS: Calcium Carbonate/Vitamin D3 1250 MG-200 Unit Tab PO SCH ×2 (09:29→17:58)
[2017-08-04] MEDS: amLODIPine 5 MG Tab PO SCH (09:29)
[2017-08-04] MEDS: Saccharomyces Boulardii (Probiotic) 250 MG Cap PO SCH ×3 (09:29→21:36)
[2017-08-04] MEDS: Metoprolol Tartrate 50 MG Tab PO SCH ×2 (09:29→21:36)
[2017-08-04] MEDS: Aluminum Hydroxide/Magnesium Hydroxide Susp 30 ML Cup PO SCH ×4 (09:30→21:37)
[2017-08-04] MEDS: Cholecalciferol (Vitamin D3) 1,000 Unit Tab PO SCH (09:30)
[2017-08-04] MEDS: Rifampin 300 MG Cap PO SCH (09:30)
[2017-08-04] MEDS: Sodium Chloride 0.9% 10 ML Syringe FLUSH PRN (15:11)
--- NOTE | 2017-08-04 19:02 | PCM.PN ---
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 She is doing very well. No nausea, no vomiting, no chest pain, no shortness of breath. Loose stools once or twice a day no blood or mucus. Today is her last day of IV antibiotic therapy. Tomorrow she'll switch to oral Keflex. The rifampin can be stopped and PICC line taken out per Dr. Barnes. Functional Status: Reports: Pain Controlled, Tolerating Diet, Ambulating - Patient Data Vitals - Most Recent: Last Vital Signs Temp 36.6 C 08/04/17 08:00 Pulse 81 08/04/17 09:29 Resp 18 08/04/17 08:00 BP 155/88 H 08/04/17 09:29 Pulse Ox 98 08/04/17 08:00 Weight - Most Recent: 102.512 kg I&O - Last 24 Hours: Intake & Output 08/04/17 08/04/17 08/04/17 06:59 14:59 22:59 Intake Total 80 80 Balance 80 80 Med Orders - Current: Current Medications Acetaminophen (Tylenol Extra Strength) 1,000 mg PO Q8H PRN PRN Reason: Pain Last Admin: 08/04/17 00:09 Dose: 1,000 mg Al Hydroxide/Mg Hydroxide (Mag-Al Susp) 10 ml PO QIDPCANDBED [facility] Last Admin: 08/04/17 17:59 Dose: 10 ml Amlodipine Besylate (Norvasc) 5 mg PO DAILY [facility] Last Admin: 08/04/17 09:29 Dose: 5 mg Calcium Carbonate (Calcium Carbonate/Vitamin D 1250 Mg-200 Unit) 1 tab PO BIDMEALS [facility] Last Admin: 08/04/17 17:58 Dose: 1 tab Calcium Carbonate/Glycine (Tums) 1,000 mg PO QID PRN PRN Reason: Indigestion Last Admin: 07/23/17 22:17 Dose: 1,000 mg Cephalexin (Keflex) 500 mg PO QID [facility] Cholecalciferol (Vitamin D3) 1,000 units PO DAILY [facility] Last Admin: 08/04/17 09:30 Dose: 1,000 units Famotidine (Pepcid) 20 mg PO BID [facility] Last Admin: 08/04/17 09:29 Dose: 20 mg Ferrous Sulfate (Ferrous Sulfate) 325 mg PO DAILY [facility] Last Admin: 08/04/17 09:29 Dose: 325 mg Furosemide (Lasix) 20 mg PO DAILY PRN PRN Reason: SWELLING Sodium Chloride (Normal Saline) 250 mls @ 125 mls/hr IV ASDIRECTED [facility] Last Admin: 08/03/17 14:35 Dose: 125 mls/hr Cefazolin Sodium/Dextrose 2 gm (/ Premix) 50 mls @ 100 mls/hr IV Q8H [facility] Stop: 08/04/17 23:00 Last Admin: 08/04/17 13:50 Dose: 100 mls/hr Levothyroxine Sodium (Levothyroxine) 125 mcg PO 0600 [facility] Last Admin: 08/04/17 05:59 Dose: 125 mcg Metoprolol Tartrate (Lopressor) 50 mg PO BID [facility] Last Admin: 08/04/17 09:29 Dose: 50 mg Non-Formulary Medication ( Omeprazole 20mg) * Ptom 1 each PO BID@0600,1700 [facility] Last Admin: 08/04/17 17:58 Dose: 1 each Ondansetron HCl (Zofran Odt) 4 mg PO Q6H PRN PRN Reason: Nausea/Vomiting Last Admin: 08/02/17 20:25 Dose: 4 mg Oxycodone HCl (Oxycodone) 5 mg PO Q4H PRN PRN Reason: MODERATE/SEVERE PAIN Last Admin: 08/02/17 14:10 Dose: 5 mg Polyethylene Glycol (Miralax) 17 gm PO DAILY PRN PRN Reason: Constipation Rifampin (Rifampin) 600 mg PO DAILY [facility] Stop: 08/09/17 12:00 Last Admin: 08/04/17 09:30 Dose: 600 mg Ropinirole HCl (Requip) 0.25 mg PO DAILY PRN PRN Reason: RESTLESS LEGS Ropinirole HCl (Requip) 0.5 mg PO BEDTIME [facility] Last Admin: 08/03/17 21:16 Dose: 0.5 mg Saccharomyces Boulardii (Florastor) 250 mg PO TID [facility] Last Admin: 08/04/17 13:50 Dose: 250 mg Senna/Docusate Sodium (Senna Plus) 1 tab PO DAILY PRN PRN Reason: Constipation Sodium Chloride (Saline Flush) 10 ml FLUSH ASDIRECTED PRN PRN Reason: IV Use Last Admin: 08/04/17 15:11 Dose: 10 ml Tramadol HCl (Ultram) 50 mg PO Q6H PRN PRN Reason: Pain Last Admin: 07/02/17 08:02 Dose: 50 mg Discontinued Medications Acetaminophen (Tylenol Extra Strength) 1,000 mg PO Q8H [facility] Last Admin: 07/18/17 06:48 Dose: Not Given Aspirin (Halfprin) 81 mg PO DAILY [facility] Last Admin: 07/19/17 09:30 Dose: 81 mg Calcium Carbonate/Glycine (Tums) 500 mg PO QID PRN PRN Reason: Indigestion Last Admin: 07/16/17 19:13 Dose: 500 mg Calcium Carbonate/Glycine (Tums) 500 mg PO ONETIME ONE Stop: 07/16/17 14:25 Last Admin: 07/16/17 14:31 Dose: 500 mg Enoxaparin Sodium (Lovenox) 30 mg SUBCUT Q24H [facility] Last Admin: 07/18/17 11:05 Dose: 30 mg Fexofenadine HCl (Kathryn) 60 mg PO BID PRN PRN Reason: Other Stop: 07/21/17 21:00 Last Admin: 07/20/17 11:15 Dose: 60 mg Cefazolin Sodium/Dextrose 2 gm (/ Premix) 50 mls @ 100 mls/hr IV Q8H [facility] Stop: 08/04/17 22:01 Last Admin: 07/28/17 05:30 Dose: 100 mls/hr Cefazolin Sodium/Dextrose 2 gm (/ Premix) 50 mls @ 100 mls/hr IV Q8H [facility] Stop: 07/30/17 09:00 Last Admin: 07/30/17 08:35 Dose: 100 mls/hr Influenza Virus Vaccine (Fluzone Quad 7700-1399) 60 mcg IM .ONCE ONE Stop: 07/22/17 09:01 Last Admin: 07/22/17 09:13 Dose: 60 mcg Lidocaine HCl (Xylocaine 2%) 100 mg IVPUSH .STK-MED ONE Stop: 07/20/17 09:31 Non-Formulary Medication ( Omeprazole 20mg) * Ptom 1 each PO DAILY@0600 [facility] Last Admin: 07/17/17 05:53 Dose: 1 each Non-Formulary Medication (Nf Drug) 1 each PO Q12H [facility] Last Admin: 07/17/17 17:40 Dose: Not Given Non-Formulary Medication ( Omeprazole 20mg) * Ptom 1 each PO BID@0600,1800 [facility] Last Admin: 07/23/17 17:02 Dose: 1 each Nystatin (Mycostatin) 5 ml PO QID [facility] Last Admin: 07/12/17 08:36 Dose: Not Given Pantoprazole Sodium (Protonix) 40 mg PO 0600 [facility] Last Admin: 07/12/17 05:59 Dose: 40 mg Polyethylene Glycol (Miralax) 17 gm PO DAILY [facility] Last Admin: 07/12/17 08:36 Dose: Not Given Propofol (Diprivan 20 Ml) 130 mg IV .STK-MED ONE Stop: 07/20/17 09:31 Senna/Docusate Sodium (Senna Plus) 1 tab PO BID [facility] Last Admin: 07/12/17 08:37 Dose: Not Given Tramadol HCl (Ultram) 50 mg PO Q6H [facility] Last Admin: 06/30/17 08:08 Dose: Not Given - Exam General: Alert, Oriented, Cooperative, No Acute Distress HEENT: Pupils Equal, Pupils Reactive Neck: Supple Extremities: Other (No redness or drainage, wound well healed with just a small open area which is minimally draining.) - Problem List & Annotations (1) Infected prosthetic knee joint SNOMED Code(s): 843761225 Code(s): T84.59XA - INFECT/INFLM REACTION DUE TO OTH INTERNAL JOINT PROSTH, INIT; Z96.659 - PRESENCE OF UNSPECIFIED ARTIFICIAL KNEE JOINT Status: Acute Current Visit: Yes Qualifiers: Encounter type: subsequent encounter Qualified Code(s): T84.59XD - Infection and inflammatory reaction due to other internal joint prosthesis, subsequent encounter; Z96.659 - Presence of unspecified artificial knee joint; Z96.659 - Presence of unspecified artificial knee joint Annotation/Comment:: Patient to do another 6 weeks of Keflex. Will be following up on Wednesday the with Dr. Barnes I believe. Likely discharge on Wednesday after tolerating 24 hours of oral antibiotic therapy. Continue Floristar while on antibiotics. - Problem List Review Problem List Initiated/Reviewed/Updated: Yes - My Orders Last 24 Hours: My Active Orders 08/05/17 09:00 Cephalexin [Keflex] 500 mg PO QID
[2017-08-04] MEDS: rOPINIRole 0.5 MG Tab PO SCH (21:38)
[2017-08-05] MEDS: OMEPRAZOLE 20 MG PO SCH ×2 (06:54→17:00)
[2017-08-05] MEDS: Levothyroxine 125 MCG Tab PO SCH (06:54)
[2017-08-05] MEDS: Ferrous Sulfate 325 MG Tab PO SCH (09:02)
[2017-08-05] MEDS: Calcium Carbonate/Vitamin D3 1250 MG-200 Unit Tab PO SCH ×2 (09:02→17:01)
[2017-08-05] MEDS: Saccharomyces Boulardii (Probiotic) 250 MG Cap PO SCH ×3 (09:02→20:33)
[2017-08-05] MEDS: Cephalexin 500 MG Cap PO SCH ×4 (09:02→20:33)
[2017-08-05] MEDS: Aluminum Hydroxide/Magnesium Hydroxide Susp 30 ML Cup PO SCH ×4 (09:03→20:34)
[2017-08-05] MEDS: amLODIPine 5 MG Tab PO SCH (09:03)
[2017-08-05] MEDS: Famotidine 20 MG Tab PO SCH ×2 (09:03→20:34)
[2017-08-05] MEDS: Cholecalciferol (Vitamin D3) 1,000 Unit Tab PO SCH (09:04)
[2017-08-05] MEDS: Metoprolol Tartrate 50 MG Tab PO SCH ×2 (09:32→20:36)
[2017-08-05] MEDS: rOPINIRole 0.5 MG Tab PO SCH (20:30)
[2017-08-06] MEDS: Levothyroxine 125 MCG Tab PO SCH (06:23)
[2017-08-06] MEDS: OMEPRAZOLE 20 MG PO SCH (06:23)
--- NOTE | 2017-08-06 07:00 | PCM.PN ---
- General Info Date of Service: 08/06/17 Admission Dx/Problem (Free Text): Patient is without complaints. She has no knee pain, redness in the knee, fevers or chills. She denies heartburn. - Patient Data Vitals - Most Recent: Last Vital Signs Temp 98.2 F 08/05/17 07:10 Pulse 73 08/05/17 20:36 Resp 20 08/05/17 07:10 BP 152/83 H 08/05/17 20:36 Pulse Ox 97 08/05/17 07:10 Weight - Most Recent: 226 lb Med Orders - Current: Current Medications Acetaminophen (Tylenol Extra Strength) 1,000 mg PO Q8H PRN PRN Reason: Pain Last Admin: 08/04/17 00:09 Dose: 1,000 mg Al Hydroxide/Mg Hydroxide (Mag-Al Susp) 10 ml PO QIDPCANDBED [facility] Last Admin: 08/05/17 20:34 Dose: Not Given Amlodipine Besylate (Norvasc) 5 mg PO DAILY [facility] Last Admin: 08/05/17 09:03 Dose: 5 mg Calcium Carbonate (Calcium Carbonate/Vitamin D 1250 Mg-200 Unit) 1 tab PO BIDMEALS [facility] Last Admin: 08/05/17 17:01 Dose: 1 tab Calcium Carbonate/Glycine (Tums) 1,000 mg PO QID PRN PRN Reason: Indigestion Last Admin: 07/23/17 22:17 Dose: 1,000 mg Cephalexin (Keflex) 500 mg PO QID [facility] Last Admin: 08/05/17 20:33 Dose: 500 mg Cholecalciferol (Vitamin D3) 1,000 units PO DAILY [facility] Last Admin: 08/05/17 09:04 Dose: 1,000 units Famotidine (Pepcid) 20 mg PO BID [facility] Last Admin: 08/05/17 20:34 Dose: 20 mg Ferrous Sulfate (Ferrous Sulfate) 325 mg PO DAILY [facility] Last Admin: 08/05/17 09:02 Dose: 325 mg Furosemide (Lasix) 20 mg PO DAILY PRN PRN Reason: SWELLING Sodium Chloride (Normal Saline) 250 mls @ 125 mls/hr IV ASDIRECTED [facility] Last Admin: 08/03/17 14:35 Dose: 125 mls/hr Levothyroxine Sodium (Levothyroxine) 125 mcg PO 0600 [facility] Last Admin: 08/06/17 06:23 Dose: 125 mcg Metoprolol Tartrate (Lopressor) 50 mg PO BID [facility] Last Admin: 08/05/17 20:36 Dose: 50 mg Non-Formulary Medication ( Omeprazole 20mg) * Ptom 1 each PO BID@0600,1700 [facility] Last Admin: 08/06/17 06:23 Dose: 1 each Ondansetron HCl (Zofran Odt) 4 mg PO Q6H PRN PRN Reason: Nausea/Vomiting Last Admin: 08/02/17 20:25 Dose: 4 mg Oxycodone HCl (Oxycodone) 5 mg PO Q4H PRN PRN Reason: MODERATE/SEVERE PAIN Last Admin: 08/02/17 14:10 Dose: 5 mg Polyethylene Glycol (Miralax) 17 gm PO DAILY PRN PRN Reason: Constipation Ropinirole HCl (Requip) 0.25 mg PO DAILY PRN PRN Reason: RESTLESS LEGS Ropinirole HCl (Requip) 0.5 mg PO BEDTIME [facility] Last Admin: 08/05/17 20:30 Dose: 0.5 mg Saccharomyces Boulardii (Florastor) 250 mg PO TID [facility] Last Admin: 08/05/17 20:33 Dose: 250 mg Senna/Docusate Sodium (Senna Plus) 1 tab PO DAILY PRN PRN Reason: Constipation Sodium Chloride (Saline Flush) 10 ml FLUSH ASDIRECTED PRN PRN Reason: IV Use Last Admin: 08/04/17 15:11 Dose: 10 ml Tramadol HCl (Ultram) 50 mg PO Q6H PRN PRN Reason: Pain Last Admin: 07/02/17 08:02 Dose: 50 mg Discontinued Medications Acetaminophen (Tylenol Extra Strength) 1,000 mg PO Q8H [facility] Last Admin: 07/18/17 06:48 Dose: Not Given Aspirin (Halfprin) 81 mg PO DAILY [facility] Last Admin: 07/19/17 09:30 Dose: 81 mg Calcium Carbonate/Glycine (Tums) 500 mg PO QID PRN PRN Reason: Indigestion Last Admin: 07/16/17 19:13 Dose: 500 mg Calcium Carbonate/Glycine (Tums) 500 mg PO ONETIME ONE Stop: 07/16/17 14:25 Last Admin: 07/16/17 14:31 Dose: 500 mg Enoxaparin Sodium (Lovenox) 30 mg SUBCUT Q24H [facility] Last Admin: 07/18/17 11:05 Dose: 30 mg Fexofenadine HCl (Kathryn) 60 mg PO BID PRN PRN Reason: Other Stop: 07/21/17 21:00 Last Admin: 07/20/17 11:15 Dose: 60 mg Cefazolin Sodium/Dextrose 2 gm (/ Premix) 50 mls @ 100 mls/hr IV Q8H [facility] Stop: 08/04/17 22:01 Last Admin: 07/28/17 05:30 Dose: 100 mls/hr Cefazolin Sodium/Dextrose 2 gm (/ Premix) 50 mls @ 100 mls/hr IV Q8H [facility] Stop: 07/30/17 09:00 Last Admin: 07/30/17 08:35 Dose: 100 mls/hr Cefazolin Sodium/Dextrose 2 gm (/ Premix) 50 mls @ 100 mls/hr IV Q8H [facility] Stop: 08/04/17 23:00 Last Admin: 08/04/17 21:38 Dose: 100 mls/hr Influenza Virus Vaccine (Fluzone Quad [id number]) 60 mcg IM .ONCE ONE Stop: 07/22/17 09:01 Last Admin: 07/22/17 09:13 Dose: 60 mcg Lidocaine HCl (Xylocaine 2%) 100 mg IVPUSH .STK-MED ONE Stop: 07/20/17 09:31 Non-Formulary Medication ( Omeprazole 20mg) * Ptom 1 each PO DAILY@0600 [facility] Last Admin: 07/17/17 05:53 Dose: 1 each Non-Formulary Medication (Nf Drug) 1 each PO Q12H [facility] Last Admin: 07/17/17 17:40 Dose: Not Given Non-Formulary Medication ( Omeprazole 20mg) * Ptom 1 each PO BID@0600,1800 [facility] Last Admin: 07/23/17 17:02 Dose: 1 each Nystatin (Mycostatin) 5 ml PO QID [facility] Last Admin: 07/12/17 08:36 Dose: Not Given Pantoprazole Sodium (Protonix) 40 mg PO 0600 [facility] Last Admin: 07/12/17 05:59 Dose: 40 mg Polyethylene Glycol (Miralax) 17 gm PO DAILY [facility] Last Admin: 07/12/17 08:36 Dose: Not Given Propofol (Diprivan 20 Ml) 130 mg IV .STK-MED ONE Stop: 07/20/17 09:31 Rifampin (Rifampin) 600 mg PO DAILY [facility] Stop: 08/09/17 12:00 Last Admin: 08/04/17 09:30 Dose: 600 mg Senna/Docusate Sodium (Senna Plus) 1 tab PO BID [facility] Last Admin: 07/12/17 08:37 Dose: Not Given Tramadol HCl (Ultram) 50 mg PO Q6H [facility] Last Admin: 06/30/17 08:08 Dose: Not Given - Exam General: Alert, Oriented, Cooperative Skin: Other (Left knee shows scar that's healed nicely. No erythema or drainage. ) - Problem List & Annotations (1) Infected prosthetic knee joint SNOMED Code(s): 332176543 Code(s): T84.59XA - INFECT/INFLM REACTION DUE TO OTH INTERNAL JOINT PROSTH, INIT; Z96.659 - PRESENCE OF UNSPECIFIED ARTIFICIAL KNEE JOINT Status: Acute Current Visit: Yes Qualifiers: Encounter type: subsequent encounter Qualified Code(s): T84.59XD - Infection and inflammatory reaction due to other internal joint prosthesis, subsequent encounter; Z96.659 - Presence of unspecified artificial knee joint; Z96.659 - Presence of unspecified artificial knee joint Annotation/Comment:: Patient to do another 6 weeks of Keflex. Will be following up on Wednesday the with Dr. Barnes I believe. Likely discharge on Wednesday after tolerating 24 hours of oral antibiotic therapy. Continue Floristar while on antibiotics. - Problem List Review Problem List Initiated/Reviewed/Updated: Yes - Plan Plan:: Discharge to home and follow-up with infectious disease and orthopedics. Appointment already rescheduled.
--- NOTE | 2017-08-06 07:09 | PCM.DCSUM1 ---
Discharge Summary - Hospital Course Free Text/Narrative:: Hospital course-patient was admitted for IV antibiotics which was managed by infectious disease and [facility]. She was here for very long time. She did well and her wound healed nicely. He was joint infection. She had problems with heartburn , vomiting. She was scoped and had esophagitis and gastritis. Her Pepcid was increased from 20 mg daily to twice a day and H2 valerie was added. It was recommended by the hospitalist switching shifts that she should continue this for a while. Patient had no other uneventful situations while she was here. She basically just had IV antibiotics was able to ambulate on her own and did well. Brief History: This is an 82-year-old female patient is transferred from [place] after she had an infected contusion of the left lateral knee I an d. She is here for IV antibiotics. 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 She states this summer in April she started to have a wound in the started draining. She did see Dr. Sebastian and then in the middle April had it opened up. She is seen infectious disease they treated it. Then it came back recently and she had an open up by Dr. Sebastian last . She is here for IV antibiotics as stated before. She denies fevers, chills, knee pain. She states it did not get inside the joint. - Discharge Data Discharge Date: 08/06/17 Discharge Disposition: Home, Self-Care 01 Condition: Good - Discharge Diagnosis/Problem(s) (1) Infected prosthetic knee joint SNOMED Code(s): 201373246 ICD Code: T84.59XA - INFECT/INFLM REACTION DUE TO OTH INTERNAL JOINT PROSTH, INIT; Z96.659 - PRESENCE OF UNSPECIFIED ARTIFICIAL KNEE JOINT Status: Acute Current Visit: Yes Problem Details: Patient to do another 6 weeks of Keflex. Will be following up on Wednesday the with Dr. Barnes I believe. Likely discharge on Wednesday after tolerating 24 hours of oral antibiotic therapy. Continue Floristar while on antibiotics. Qualifiers: Encounter type: subsequent encounter Qualified Code(s): T84.59XD - Infection and inflammatory reaction due to other internal joint prosthesis, subsequent encounter; Z96.659 - Presence of unspecified artificial knee joint; Z96.659 - Presence of unspecified artificial knee joint (2) Gastritis SNOMED Code(s): 4288429 ICD Code: K29.70 - GASTRITIS, UNSPECIFIED, WITHOUT BLEEDING Status: Acute Current Visit: Yes (3) Esophagitis SNOMED Code(s): 96061734 ICD Code: K20.9 - ESOPHAGITIS, UNSPECIFIED Status: Acute Current Visit: Yes (4) Hiatal hernia SNOMED Code(s): 53926108 ICD Code: K44.9 - DIAPHRAGMATIC HERNIA WITHOUT OBSTRUCTION OR GANGRENE Status: Acute Current Visit: Yes (5) GERD (gastroesophageal reflux disease) SNOMED Code(s): 931516804 ICD Code: K21.9 - GASTRO-ESOPHAGEAL REFLUX DISEASE WITHOUT ESOPHAGITIS Status: Acute Current Visit: Yes Qualifiers: Esophagitis presence: with esophagitis Qualified Code(s): K21.0 - Gastro- esophageal reflux disease with esophagitis - Patient Summary/Data Operative Procedure(s) Performed: egd with biopsy Consults: Consultations 06/29/17 14:03 OT Evaluation and Treatment [CONS] Routine Please Evaluate and Treat. OT Reason for Consult: ADL's This query below is only for informational purposes and is not editable. Admission Diagnosis/Problem: Prosthetic joint infection PT Evaluation and Treatment [CONS] Routine Please Evaluate and Treat. PT Reason for Consult: Ambulation This query below is only for informational purposes and is not editable. Admission Diagnosis/Problem: Prosthetic joint infection - Patient Instructions Diet: Regular Diet as Tolerated Activity: As Tolerated Driving: May Drive Today Showering/Bathing: May Shower Notify Provider of: Fever, Increased Pain, Swelling and Redness, Nausea and/or Vomiting Other/Special Instructions: 1. Recheck with Dr. Guadarrama in 7-14 days. 2. Recheck with infectious disease and oncology on August 10. Appointment already set up. 3. Recheck with orthopedics on August 19. Appointment already set up. - Discharge Plan Prescriptions/Med Rec: Cephalexin [IJD: Cephalexin] 500 mg PO QID #120 capsule Famotidine [Pepcid] 20 mg PO BID #60 tablet Omeprazole 20 mg PO BID #60 cap.cr Home Medications: Home Meds Acetaminophen [Tylenol Extra Strength] 1,000 mg PO Q8H 06/29/17 [History] Aspirin [Halfprin] 81 mg PO DAILY 06/29/17 [History] Calcium Carbonate [Tums] 500 mg PO QID PRN 06/29/17 [History] Calcium Carbonate/Vitamin D3 [Calcium 500-Vit D3 200 Caplet] 1 tab PO BIDMEALS 06/29/17 [History] Cholecalciferol (Vitamin D3) [Vitamin D3] 1,000 units PO DAILY 06/29/17 [History ] Furosemide 20 mg PO DAILY PRN 06/29/17 [History] Iron,Carbonyl/Ascorbic Acid [Vitron-C Tablet] 1 each PO DAILY 06/29/17 [History] Levothyroxine 125 mcg PO DAILY 06/29/17 [History] Metoprolol Tartrate [Lopressor] 50 mg PO BID 06/29/17 [History] Nystatin 500,000 unit PO QID 06/29/17 [History] Rifampin 600 mg PO DAILY 06/29/17 [History] amLODIPine [Norvasc] 5 mg PO DAILY 06/29/17 [History] rOPINIRole [Requip] 0.25 mg PO DAILY PRN 06/29/17 [History] rOPINIRole [Requip] 0.5 mg PO BEDTIME 06/29/17 [History] traMADol [Ultram] 50 mg PO Q6H 06/29/17 [History] Cephalexin [IJD: Cephalexin] 500 mg PO QID #120 capsule 08/06/17 [Rx] Famotidine [Pepcid] 20 mg PO BID #60 tablet 08/06/17 [Rx] Omeprazole 20 mg PO BID #60 cap.cr 08/06/17 [Rx] Patient Handouts: Fall Prevention in the Home, [id number], Bone and Joint Infections, Adult, Venous Thromboembolism Prevention - Discharge Summary/Plan Comment DC Time >30 min.: No - Patient Data Vitals - Most Recent: Last Vital Signs Temp 98.2 F 08/05/17 07:10 Pulse 73 08/05/17 20:36 Resp 20 08/05/17 07:10 BP 152/83 H 08/05/17 20:36 Pulse Ox 97 08/05/17 07:10 Weight - Most Recent: 226 lb Med Orders - Current: Current Medications Acetaminophen (Tylenol Extra Strength) 1,000 mg PO Q8H PRN PRN Reason: Pain Last Admin: 08/04/17 00:09 Dose: 1,000 mg Al Hydroxide/Mg Hydroxide (Mag-Al Susp) 10 ml PO QIDPCANDBED [facility] Last Admin: 08/05/17 20:34 Dose: Not Given Amlodipine Besylate (Norvasc) 5 mg PO DAILY [facility] Last Admin: 08/05/17 09:03 Dose: 5 mg Calcium Carbonate (Calcium Carbonate/Vitamin D 1250 Mg-200 Unit) 1 tab PO BIDMEALS [facility] Last Admin: 08/05/17 17:01 Dose: 1 tab Calcium Carbonate/Glycine (Tums) 1,000 mg PO QID PRN PRN Reason: Indigestion Last Admin: 07/23/17 22:17 Dose: 1,000 mg Cephalexin (Keflex) 500 mg PO QID [facility] Last Admin: 08/05/17 20:33 Dose: 500 mg Cholecalciferol (Vitamin D3) 1,000 units PO DAILY [facility] Last Admin: 08/05/17 09:04 Dose: 1,000 units Famotidine (Pepcid) 20 mg PO BID [facility] Last Admin: 08/05/17 20:34 Dose: 20 mg Ferrous Sulfate (Ferrous Sulfate) 325 mg PO DAILY [facility] Last Admin: 08/05/17 09:02 Dose: 325 mg Furosemide (Lasix) 20 mg PO DAILY PRN PRN Reason: SWELLING Sodium Chloride (Normal Saline) 250 mls @ 125 mls/hr IV ASDIRECTED [facility] Last Admin: 08/03/17 14:35 Dose: 125 mls/hr Levothyroxine Sodium (Levothyroxine) 125 mcg PO 0600 [facility] Last Admin: 08/06/17 06:23 Dose: 125 mcg Metoprolol Tartrate (Lopressor) 50 mg PO BID [facility] Last Admin: 08/05/17 20:36 Dose: 50 mg Non-Formulary Medication ( Omeprazole 20mg) * Ptom 1 each PO BID@0600,1700 [facility] Last Admin: 08/06/17 06:23 Dose: 1 each Ondansetron HCl (Zofran Odt) 4 mg PO Q6H PRN PRN Reason: Nausea/Vomiting Last Admin: 08/02/17 20:25 Dose: 4 mg Oxycodone HCl (Oxycodone) 5 mg PO Q4H PRN PRN Reason: MODERATE/SEVERE PAIN Last Admin: 08/02/17 14:10 Dose: 5 mg Polyethylene Glycol (Miralax) 17 gm PO DAILY PRN PRN Reason: Constipation Ropinirole HCl (Requip) 0.25 mg PO DAILY PRN PRN Reason: RESTLESS LEGS Ropinirole HCl (Requip) 0.5 mg PO BEDTIME [facility] Last Admin: 08/05/17 20:30 Dose: 0.5 mg Saccharomyces Boulardii (Florastor) 250 mg PO TID [facility] Last Admin: 08/05/17 20:33 Dose: 250 mg Senna/Docusate Sodium (Senna Plus) 1 tab PO DAILY PRN PRN Reason: Constipation Sodium Chloride (Saline Flush) 10 ml FLUSH ASDIRECTED PRN PRN Reason: IV Use Last Admin: 08/04/17 15:11 Dose: 10 ml Tramadol HCl (Ultram) 50 mg PO Q6H PRN PRN Reason: Pain Last Admin: 07/02/17 08:02 Dose: 50 mg Discontinued Medications Acetaminophen (Tylenol Extra Strength) 1,000 mg PO Q8H [facility] Last Admin: 07/18/17 06:48 Dose: Not Given Aspirin (Halfprin) 81 mg PO DAILY [facility] Last Admin: 07/19/17 09:30 Dose: 81 mg Calcium Carbonate/Glycine (Tums) 500 mg PO QID PRN PRN Reason: Indigestion Last Admin: 07/16/17 19:13 Dose: 500 mg Calcium Carbonate/Glycine (Tums) 500 mg PO ONETIME ONE Stop: 07/16/17 14:25 Last Admin: 07/16/17 14:31 Dose: 500 mg Enoxaparin Sodium (Lovenox) 30 mg SUBCUT Q24H [facility] Last Admin: 07/18/17 11:05 Dose: 30 mg Fexofenadine HCl (Kathryn) 60 mg PO BID PRN PRN Reason: Other Stop: 07/21/17 21:00 Last Admin: 07/20/17 11:15 Dose: 60 mg Cefazolin Sodium/Dextrose 2 gm (/ Premix) 50 mls @ 100 mls/hr IV Q8H [facility] Stop: 08/04/17 22:01 Last Admin: 07/28/17 05:30 Dose: 100 mls/hr Cefazolin Sodium/Dextrose 2 gm (/ Premix) 50 mls @ 100 mls/hr IV Q8H [facility] Stop: 07/30/17 09:00 Last Admin: 07/30/17 08:35 Dose: 100 mls/hr Cefazolin Sodium/Dextrose 2 gm (/ Premix) 50 mls @ 100 mls/hr IV Q8H [facility] Stop: 08/04/17 23:00 Last Admin: 08/04/17 21:38 Dose: 100 mls/hr Influenza Virus Vaccine (Fluzone Quad [id number]) 60 mcg IM .ONCE ONE Stop: 07/22/17 09:01 Last Admin: 07/22/17 09:13 Dose: 60 mcg Lidocaine HCl (Xylocaine 2%) 100 mg IVPUSH .STK-MED ONE Stop: 07/20/17 09:31 Non-Formulary Medication ( Omeprazole 20mg) * Ptom 1 each PO DAILY@0600 [facility] Last Admin: 07/17/17 05:53 Dose: 1 each Non-Formulary Medication (Nf Drug) 1 each PO Q12H [facility] Last Admin: 07/17/17 17:40 Dose: Not Given Non-Formulary Medication ( Omeprazole 20mg) * Ptom 1 each PO BID@0600,1800 [facility] Last Admin: 07/23/17 17:02 Dose: 1 each Nystatin (Mycostatin) 5 ml PO QID [facility] Last Admin: 07/12/17 08:36 Dose: Not Given Pantoprazole Sodium (Protonix) 40 mg PO 0600 [facility] Last Admin: 07/12/17 05:59 Dose: 40 mg Polyethylene Glycol (Miralax) 17 gm PO DAILY [facility] Last Admin: 07/12/17 08:36 Dose: Not Given Propofol (Diprivan 20 Ml) 130 mg IV .STK-MED ONE Stop: 07/20/17 09:31 Rifampin (Rifampin) 600 mg PO DAILY [facility] Stop: 08/09/17 12:00 Last Admin: 08/04/17 09:30 Dose: 600 mg Senna/Docusate Sodium (Senna Plus) 1 tab PO BID [facility] Last Admin: 07/12/17 08:37 Dose: Not Given Tramadol HCl (Ultram) 50 mg PO Q6H [facility] Last Admin: 06/30/17 08:08 Dose: Not Given *Q Meaningful Use (DIS) - VTE *Q VTE Criteria *Q: - Stroke *Q Stroke Criteria *Q: - AMI *Q AMI Criteria *Q:
[2017-08-06] MEDS: Cephalexin 500 MG Cap PO SCH (09:14)
[2017-08-06] MEDS: Metoprolol Tartrate 50 MG Tab PO SCH (09:14)
[2017-08-06] MEDS: Saccharomyces Boulardii (Probiotic) 250 MG Cap PO SCH (09:14)
[2017-08-06] MEDS: Calcium Carbonate/Vitamin D3 1250 MG-200 Unit Tab PO SCH (09:14)
[2017-08-06] MEDS: Ferrous Sulfate 325 MG Tab PO SCH (09:14)
[2017-08-06] MEDS: Famotidine 20 MG Tab PO SCH (09:15)
[2017-08-06] MEDS: Cholecalciferol (Vitamin D3) 1,000 Unit Tab PO SCH (09:15)
[2017-08-06] MEDS: amLODIPine 5 MG Tab PO SCH (09:15)
[2017-08-06] MEDS: Aluminum Hydroxide/Magnesium Hydroxide Susp 30 ML Cup PO SCH (09:15)
[2017-08-06 09:16] VITALS: BP 143/70
== END 2017-08-06 11:05 | disposition home or self-care (01) | DRG 949 ==
LOC: FB.MS 12:04
PROVIDERS: ADMIT Family Medicine; ATTEND Family Medicine
PROC: 0DB48ZX Excision of Esophagogastric Junction, Via Natural or Artificial Opening Endoscopic, Diagnostic (ICD-10-PCS; principal; 2017-07-20)
PROC: 0DB68ZX Excision of Stomach, Via Natural or Artificial Opening Endoscopic, Diagnostic (ICD-10-PCS; 2017-07-20)
DX: T84.59XD Infection and inflammatory reaction due to other internal joint prosthesis, subsequent encounter (principal); K92.0 Hematemesis; Z96.652 Presence of left artificial knee joint; Z23 Encounter for immunization; K29.70 Gastritis, unspecified, without bleeding; K44.9 Diaphragmatic hernia without obstruction or gangrene; K21.0 Gastro-esophageal reflux disease with esophagitis; D64.9 Anemia, unspecified; Z85.3 Personal history of malignant neoplasm of breast; E03.9 Hypothyroidism, unspecified; Z87.01 Personal history of pneumonia (recurrent); Z79.82 Long term (current) use of aspirin; Z88.5 Allergy status to narcotic agent; Z79.2 Long term (current) use of antibiotics
CPT/HCPCS: 36415; 36591; 80048; 80053; 82271; 82272; 82607; 82728; 83540; 83550; 84165; 84443; 85025; 85045; 85651; 86140; 86850; 86900; 86901; 87338; 88305; 88313; 88342; 90686; 97165-GO; A9270-GY; G0008; J0690; J1650; J2704; J7050